=== PATIENT | male | born 1960 | race Caucasian/White ===

== ENCOUNTER 2022-08-29 13:24 | Inpatient (IN) ==
[2022-08-29 15:06] LABS: Basophils # (auto) 0.08 K/uL (0-0.2); Basophils % (auto) 0.6 %; Eosinophils # (auto) 0.43 K/uL (0-0.50); Eosinophils % (auto) 3.3 %; Hematocrit (blood only) 44.4 % (42.0-52.0); Hemoglobin 14.6 g/dl (14.0-18.0); Immature Granulocytes # (auto) 0.05 K/uL (0.01-0.20); Immature Granulocytes % (auto) 0.4 %; Lymphocytes # (auto) 2.54 K/uL (1.2-3.4); Lymphocytes % (auto) 19.3 %; Mean Corpuscular Hemoglobin 30.2 pg (25.0-34.0); Mean Corpuscular Hgb Conc 32.9 g/dL (32.0-36.0); Mean Corpuscular Volume 91.9 fL (80.0-100.0); Mean Platelet Volume 9.2 fL (9.4-12.4); Monocytes # (auto) 0.89 K/uL (0.11-0.59); Monocytes % (auto) 6.8 %; Neutrophils # (auto) 9.16 K/uL (1.40-6.50); Neutrophils % (auto) 69.6 %; Platelet Count 416 K/uL (130-400); RDW Coefficient of Variation 12.7 % (11.5-14.5); Red Blood Count 4.83 M/uL (4.70-6.10); White Blood Count 13.15 K/ul (4.8-10.8)
[2022-08-29 15:21] LABS: Albumin Level 3.9 gm/dl (3.4-5.0); BUN Creatinine Ratio 17.1 (10-20); Bilirubin,Total 0.5 mg/dl (0.2-1.0); Calcium 9.5 mg/dl (8.5-10.1); Creatinine Clr Calc Pharmacy 113.6 ml/min; Est GFR (African American) 119.7 ml/min; Est GFR (Non-African American) 103.3 ml/min; Globulin 3.9 gm/dl (2.5-4.0); Potassium 4.3 mmol/L (3.5-5.1); Total Protein 7.8 gm/dl (6.0-8.3)
--- NOTE | 2022-08-29 16:35 | Emergency Department Note ---
History of Present Illness General Chief complaint: Abdominal Pain Stated complaint: ABODOMINAL PAIN Time Seen by Provider: 08/29/22 16:21 Source: patient Mode of arrival: ambulatory Limitations: no limitations History of Present Illness Maximum Pain Intensity: 3 This patient is a 61-year-old male who presents to the ER for evaluation of 3 weeks of abdominal pain. He initially thought it was a bout of diverticulitis. He called his doctor and started cipro and flagyl. He finished 10 days of this and reports it did not help his symptoms. He was then started on Augmentin, still with no improvement. His outpatient providers ordered a CT scan which was performed this morning and showed an abscess. Patient states his pain has been intermittent, seems to be worse at night. He states he is actually feeling okay at this time and not having much pain. He denies any fever/chills or vomiting. Home Medications Medication Instructions Recorded Confirmed Type amoxicillin 875 mg-potassium 1 tab PO Q12 08/29/22 08/29/22 History clavulanate 125 mg tablet atorvastatin 40 mg tablet 40 mg PO HS 08/29/22 08/29/22 History Allergies Allergy/AdvReac Type Severity Reaction Status Date / Time No Known Allergies Allergy Unverified 01/11/21 14:30 Past Med/Surg History Medical History Diverticulitis Social History Smoking Status: Current every day smoker Cigarettes Per Day: 20; Do You Dip or Chew Tobacco: No; Hx Alcohol Use: No Hx Substance Use: No Preferred Language: Scottish Communication Ability: Effective Cardiopulmonary Technician And Eeg Tech Required: No Beliefs That Will Affect Care: None Current Living Situation: Spouse Feels Safe at Home: Yes Safety Concerns: Feels Safe At This Time Assistive Devices: Denture - Upper and Glasses Review of Systems A total of 10 systems reviewed and were otherwise negative Physical Exam Vital Signs Vital Signs - 24 hr 08/29/22 13:29 08/29/22 16:16 08/29/22 17:55 Temperature 36.9 C Temperature Source Oral Pulse Rate 103 H Pulse Rate [Left Finger] 86 80 Pulse Rhythm [Left Finger] Pulse Strength [Left Finger] Respiratory Rate 18 20 20 Respiratory Effort / Characteristics Non-Labored Spontaneous Respiratory Depth Normal Respiratory Pattern Regular Blood Pressure 154/83 H Blood Pressure [Left Arm] 144/77 H 123/64 Blood Pressure Mean 106 Blood Pressure Mean [Left Arm] 99 83 Blood Pressure Position [Left Arm] Sitting Sitting Pulse Oximetry 96 97 95 Oxygen Delivery Method Room Air Sepsis Recent Fever Within 48 Hours No Sepsis New/Unexplained Change in Mental Status No Sepsis Action Taken by Nursing No Action Required 08/29/22 19:00 08/29/22 21:00 Temperature Temperature Source Pulse Rate Pulse Rate [Left Finger] 79 77 Pulse Rhythm [Left Finger] Regular Regular Pulse Strength [Left Finger] Normal Normal Respiratory Rate 18 18 Respiratory Effort / Characteristics Non-Labored Non-Labored Respiratory Depth Normal Normal Respiratory Pattern Regular Regular Blood Pressure Blood Pressure [Left Arm] 128/60 117/82 Blood Pressure Mean Blood Pressure Mean [Left Arm] 82 93 Blood Pressure Position [Left Arm] Lying Lying Pulse Oximetry 97 97 Oxygen Delivery Method Room Air Room Air Sepsis Recent Fever Within 48 Hours Sepsis New/Unexplained Change in Mental Status Sepsis Action Taken by Nursing VITALS: Vitals are noted on the nurse's note and reviewed by myself. GENERAL: This is a 61-year-old male, in no acute distress, well-developed well- nourished. SKIN: The skin was without rashes. EYES: Pupils equal round and reactive to light and accommodation. MOUTH: Mucous membranes moist. Tonsils are not enlarged. Pharynx without erythema or exudate. NECK: Supple without nuchal rigidity. HEART: Regular rate and rhythm without murmurs gallops or rubs. LUNGS: Clear to auscultation bilaterally without wheezes, rales or rhonchi. No retractions or accessory muscle use. ABDOMEN: Positive bowel sounds x 4. Soft, nontender to palpation. No guarding or rebound tenderness. NEURO: Patient was alert and oriented to person place and time. Course Administered Medications Dextrose/Sodium Chloride (D5w And 1/2nss) 1,000 mls @ 80 mls/hr IV .[id number] [facility] Stop: 08/31/22 12:11 Last Admin: 08/29/22 23:22 Dose: 80 mls/hr Documented By: LRS Piperacillin Sod/Tazobactam (Sod 4.5 gm/ Dextrose) 120 mls @ 30 mls/hr IV Q8H [facility]; Protocol Stop: 09/09/22 00:00 Last Admin: 08/29/22 23:58 Dose: 30 mls/hr Documented By: SHANON Discontinued Medications Piperacillin Sod/Tazobactam Sod (Zosyn) 4.5 gm in 120 mls @ 240 mls/hr IV NOW ONE Stop: 08/29/22 17:06 Last Infusion: 08/29/22 18:47 Dose: 0 mls/hr Documented By: Admin: 08/29/22 17:01 Dose: 240 mls/hr Documented By: RUBY Sodium Chloride (Nss 1000ml) 1,000 mls @ 999 mls/hr IV .Q1H1M ONE Stop: 08/29/22 20:34 Last Infusion: 08/29/22 21:03 Dose: 0 mls/hr Documented By: Admin: 08/29/22 19:52 Dose: 999 mls/hr Documented By: SHANON Medical Decision Making Differential Diagnosis Appendicitis, testicular torsion, infections, diverticulitis, UTI, obstruction, mesenteric ischemia, aortic pathology, inflammatory bowel disease, renal colic, PUD, pancreatitis, biliary pathology, hernia, volvulus, constipation, as well as other pathologies. Home Medications Current Medication List: was personally reviewed by me Laboratory Data Attestation: I reviewed the patient's lab results. 08/29/22 14:23 08/29/22 14:23 Lab Results 08/29/22 08/29/22 08/29/22 Range/Units 14:23 14:23 16:00 WBC 13.15 H (4.8-10.8) K/ul RBC 4.83 (4.70-6.10) M/uL Hgb 14.6 (14.0-18.0) g/dl Hct 44.4 (42.0-52.0) % MCV 91.9 (80.0-100.0) fL MCH 30.2 (25.0-34.0) pg MCHC 32.9 (32.0-36.0) g/dL RDW Std Deviation 43.0 (36.4-46.3) fL RDW Coeff of Jayden 12.7 (11.5-14.5) % Plt Count 416 H (130-400) K/uL MPV 9.2 L (9.4-12.4) fL Immature Gran % (Auto) 0.4 % Neut % (Auto) 69.6 % Lymph % (Auto) 19.3 % [place] % (Auto) 6.8 % Eos % (Auto) 3.3 % Baso % (Auto) 0.6 % Neut # (Auto) 9.16 H (1.40-6.50) K/uL Lymph # (Auto) 2.54 (1.2-3.4) K/uL [place] # (Auto) 0.89 H (0.11-0.59) K/uL Eos # (Auto) 0.43 (0-0.50) K/uL Baso # (Auto) 0.08 (0-0.2) K/uL Immature Gran # (Auto) 0.05 (0.01-0.20) K/uL Sodium 138 (136-145) mmol/L Potassium 4.3 (3.5-5.1) mmol/L Chloride 101 (98-107) mmol/L Carbon Dioxide 31 (21-32) mmol/L Anion Gap 6 (3-11) BUN 12 (6-23) mg/dl Creatinine 0.70 (0.6-1.4) mg/dl Est Cr Clr Drug Dosing 113.6 ml/min Est GFR ( Amer) 119.7 ml/min Est GFR (Non-Af Amer) 103.3 ml/min BUN/Creatinine Ratio 17.1 (10-20) Glucose 97 (70-99(Fasting)) mg/dl Lactate (0.4-2.0) mmol/L Calcium 9.5 (8.5-10.1) mg/dl Total Bilirubin 0.5 (0.2-1.0) mg/dl AST 35 (13-39) U/L ALT 55 H (7-52) U/L Alkaline Phosphatase 63 (34-104) U/L Total Protein 7.8 (6.0-8.3) gm/dl Albumin 3.9 (3.4-5.0) gm/dl Globulin 3.9 (2.5-4.0) gm/dl Albumin/Globulin Ratio 1.0 (0.9-2) Lipase 91 H (11-82) U/L Urine Color Urine Appearance (Clear) Urine pH (4.5-7.5) Ur Specific [place] (1.000-1.030) Urine Protein (Negative) Urine Glucose (UA) (Negative) Urine Ketones (Negative) Urine Blood (Negative) Urine Nitrite (Negative) Urine Bilirubin (Negative) Urine Urobilinogen (Negative) Ur Leukocyte Esterase (Negative) SARS-CoV-2, RNA, NAAT NEGATIVE (NEGATIVE) 08/29/22 08/29/22 Range/Units 16:46 19:52 WBC (4.8-10.8) K/ul RBC (4.70-6.10) M/uL Hgb (14.0-18.0) g/dl Hct (42.0-52.0) % MCV (80.0-100.0) fL MCH (25.0-34.0) pg MCHC (32.0-36.0) g/dL RDW Std Deviation (36.4-46.3) fL RDW Coeff of Jayden (11.5-14.5) % Plt Count (130-400) K/uL MPV (9.4-12.4) fL Immature Gran % (Auto) % Neut % (Auto) % Lymph % (Auto) % [place] % (Auto) % Eos % (Auto) % Baso % (Auto) % Neut # (Auto) (1.40-6.50) K/uL Lymph # (Auto) (1.2-3.4) K/uL [place] # (Auto) (0.11-0.59) K/uL Eos # (Auto) (0-0.50) K/uL Baso # (Auto) (0-0.2) K/uL Immature Gran # (Auto) (0.01-0.20) K/uL Sodium (136-145) mmol/L Potassium (3.5-5.1) mmol/L Chloride (98-107) mmol/L Carbon Dioxide (21-32) mmol/L Anion Gap (3-11) BUN (6-23) mg/dl Creatinine (0.6-1.4) mg/dl Est Cr Clr Drug Dosing ml/min Est GFR ( Amer) ml/min Est GFR (Non-Af Amer) ml/min BUN/Creatinine Ratio (10-20) Glucose (70-99(Fasting)) mg/dl Lactate 0.5 (0.4-2.0) mmol/L Calcium (8.5-10.1) mg/dl Total Bilirubin (0.2-1.0) mg/dl AST (13-39) U/L ALT (7-52) U/L Alkaline Phosphatase (34-104) U/L Total Protein (6.0-8.3) gm/dl Albumin (3.4-5.0) gm/dl Globulin (2.5-4.0) gm/dl Albumin/Globulin Ratio (0.9-2) Lipase (11-82) U/L Urine Color Yellow Urine Appearance Clear (Clear) Urine pH 5.0 (4.5-7.5) Ur Specific [place] 1.042 H (1.000-1.030) Urine Protein Negative (Negative) Urine Glucose (UA) Negative (Negative) Urine Ketones Trace H (Negative) Urine Blood Negative (Negative) Urine Nitrite Negative (Negative) Urine Bilirubin Negative (Negative) Urine Urobilinogen Negative (Negative) Ur Leukocyte Esterase Negative (Negative) SARS-CoV-2, RNA, NAAT (NEGATIVE) Imaging Data Attestation: I personally reviewed and interpreted this imaging study as follows: Radiologist's Impression: CT SCAN OF THE ABDOMEN AND PELVIS WITH IV CONTRAST CLINICAL HISTORY: Generalized abdominal pain. COMPARISON STUDY: No priors. TECHNIQUE: Following the IV administration of 94 cc of Optiray 350, CT scan of the abdomen and pelvis is performed from the lung bases to the proximal femora. Images are reviewed in the axial, sagittal, and coronal planes. IV contrast was administered without complication. Oral contrast was utilized. A dose lowering technique was utilized adhering to the principles of ALARA. CT DOSE: 413.83 mGy.cm FINDINGS: Lung bases: The heart is normal in size and without pericardial effusion. Emphysematous change is noted at the lung bases. No airspace consolidation or pleural effusion is identified. Liver: The contrast-enhanced liver is normal in size, contour, and attenuation. There is no intrahepatic biliary ductal dilatation. The hepatic veins and portal veins are patent. Gallbladder: Unremarkable. Spleen: Normal in size and attenuation. Pancreas: Unremarkable. Adrenal glands: Unremarkable. Kidneys: The contrast enhanced kidneys are normal in size and without hydronephrosis. The kidneys enhance symmetrically. Abdominal vasculature: The abdominal aorta is normal in course and caliber noting moderate atherosclerotic calcification. Bowel: There is mild diverticulosis of the sigmoid colon. There is diffuse wall thickening of the sigmoid colon with surrounding inflammation. A multiloculated abscess is seen in the central pelvis along the right superior aspect of the sigmoid. This measures approximately 5 x 4.5 x 5 cm as seen on axial image #322. Moderate fecal retention is noted throughout the right colon. There is no bowel obstruction. Enteric contrast reaches the cecum. The appendix is well- visualized and normal. Peritoneum: There is no intraperitoneal free air or abdominal ascites. There is a fat-containing umbilical hernia. Lymphadenopathy: There are mildly enlarged retroperitoneal and left iliac chain lymph nodes which measure up to 12 mm in short axis. Pelvic viscera: The prostate gland is enlarged and heterogeneous noting median lobe hypertrophy. The bladder wall is thickened and trabeculated indicating chronic outlet obstruction. There is pericystic infiltration. The diverticular abscess closely approximates the left aspect of the bladder dome which is asymmetrically thick wall. A developing colovesicular fistula is not excluded. There is no gas within the bladder lumen at this time. A small fat-containing inguinal hernia is seen on the right. Skeletal structures: No lytic or blastic lesions are seen. IMPRESSION: 1. There is an approximately 5 cm abscess adjacent to the sigmoid colon. The sigmoid colon is inflamed and there is adjacent diverticular disease. This is likely related to chronic diverticulitis. Posttreatment colonoscopy is recommended to assess the underlying colon and exclude underlying mucosal lesion. 2. No intraperitoneal free air is seen. 3. The abscess closely approximates the bladder dome with adjacent asymmetric bladder wall thickening. A developing colovesicular fistula is not excluded. No gas is seen within the bladder lumen at this time. 4. Mildly enlarged retroperitoneal and iliac chain lymph nodes are likely reactive. 5. Emphysema. 6. Additional findings as above. MDM Narrative This patient is a 61-year-old male who presents to the emergency department for evaluation of abdominal pain. Patient has been treated as an outpatient for diverticulitis with no improvement of symptoms. CT scan was performed as an out patient earlier today and showed a 5 cm abscess adjacent to the sigmoid colon. This is believed to be due to chronic diverticulitis. Patient is overall well- appearing, does not appear to be septic. His labs revealed a leukocytosis of 13,000, no anemia or significant electrolyte abnormalities. Kidney function within normal limits. Urinalysis is not suggestive of infection. Case initially discussed with Dr. Catrer of general surgery who recommended transfer for interventional radiology consultation. I did speak with our radiologist who did not feel that this abscess was amenable to IR drainage given its location and surrounding small bowel. I then again spoke with general surgery who stated the patient need to be transferred for colorectal surgery. I spoke with colorectal surgery at [facility], Dr. Forrester, who accepted the patient in transfer but has no beds available. They believe it will be at least a day to the patient has a bed. Given this, I elected to admit the p atient here to the medical service. Case was discussed with the [facility] who agreed to evaluate the patient for further care. Patient given initial dose of Zosyn and IV fluids. He did not require any pain medication. Impression & Plan Diverticulitis of intestine with abscess Discharge Plan Visit Data Chief Complaint: Abdominal Pain Stated Complaint: ABODOMINAL PAIN ED Provider: Cristo Meléndez ED Midlevel Provider: Estephania Escobar Discharge Problem: Diverticulitis of intestine with abscess Patient Disposition: Admitted As Inpatient Discharge Instructions Interventions: ED Discharge Assessment Last Done: 08/29/22 22:41
[2022-08-29] MEDS ORDERED: PIPERACILLIN/TAZOBACTAM 4.5 GM/120 ML BAG IV ONE (16:37)
[2022-08-29] MEDS ORDERED: SODIUM CHLORIDE 0.9% 1000ML 1,000 ML IV ONE (19:34)
[2022-08-29 20:14] LABS: Appearance Urine Clear (Clear); Bilirubin Urine Negative (Negative); Blood Urine Negative (Negative); Color Urine Yellow; Glucose Urine UA Negative (Negative); Ketones Urine Trace (Negative); Leukocyte Esterase Urine Negative (Negative); Nitrite Urine Negative (Negative); Protein Urine Negative (Negative); Specific Gravity Urine 1.042 (1.000-1.030); Urobilinogen Urine Negative (Negative)
--- NOTE | 2022-08-29 20:34 | History & Physical Report ---
Date of Service August 29, 2022 Assessment & Plan (1) Pericolonic abscess: Plan: Abner is a 61 year old male w/ PmHx diverticulitis, dyslipidemia, tobacco use admitted for pericolonic abscess measuring 5cm adjacent to sigmoid colon. Pericolonic abscess: -WBC 13.5, platelet 416, hgb 14.6. Vitals stable. -CT A&P w/ 5cm pericolonic abscess adjacent to sigmoid colon, approximates bladder dome w/ adjacent bladder wall thickening. -History of diverticulitis with evidence of chronic diverticulitis on CT A&P. -Had 10 day course of Cipro 500mg BID and Flagyl 500mg BID, then started on Augmentin outpatient. -Given 4.5gm Zosyn in the ED. Continue Zosyn 4.5gm q8h. -NPO, IVF D5/.5NSS at 80ml/hr. -ED discussed case with local surgeon and radiology, recommended transfer to tertiary facility. [facility] accepted patient but bed not available for at least 24hrs. -Continue to trend CBC, BMP. Leukocytosis: -WBC 13.5 on admission. -Most likely due to underlying abscess. -Continue to trend. Elevated Lipase: -Lipase 91 on admission, CT A&P showing pancreas unremarkable. -Can repeat in AM. Dyslipidemia: -Hold home statin while NPO. Tobacco use: -1ppd user. -Can add nicotine patch for patient if needed. DVT Prophylaxis: SCDs. F/E/N/GI: NPO. Code status: Conditional code, patient would want CPR and shock performed but no intubation. Dispo: Med/tele, possibly to [facility] if bed available. (2) Dyslipidemia: (3) Tobacco use: History of Present Illness Chief Complaint: Abdominal pain Primary Care Provider: Andres Black Abner is a 61 year old male w/ PmHx diverticulitis, tobacco use, hyperlipidemia coming in to the ED for abdominal pain. He had symptoms of abdominal pain below the belly button x1 night for which he was seen in outpatient clinic 08/09 which he felt was similar to diverticulitis. He was put on Cipro and Flagyl 500mg BID for 10 days, had some improvement with it but still with residual pain when seen at follow up 08/21, he had belly pain first thing in the morning followed by small bowel movement, larger BM after breakfast and pain would get better. He was then placed on Augmentin BID. A CT scan of the A&P was done and a 5cm abscess was found and he was recommended to go to the ED. He states that his BM are regular in consistency but he just has the consistent small bowel movement followed by the larger bowel movements with slight relief in pain. He denies any current abdominal pain and states that he only recently started to get a few chills. He denies any fevers, chest pain, shortness of breath, blood in the stool, dysuria, urinary frequency, headaches. In the ED he was found to have a WBC 13.5, hemoglobin 14.6, platelets 416, electrolytes, kidney function, liver enzymes within normal limits, lipase 91. CT A&P w/ evidence for 5cm abscess adjacent to sigmoid colon, sigmoid colon inflamed and adjacent diverticular disease related to chronic diverticulitis; abscess closely approximates bladder dome w/ adjacent asymmetric bladder wall thickening, mildly enlarged retroperitoneal and iliac chain lymph nodes. Allergies Allergy/AdvReac Type Severity Reaction Status Date / Time No Known Allergies Allergy Unverified 01/11/21 14:30 Home Medications Medication Instructions Recorded Confirmed Type amoxicillin 875 mg-potassium 1 tab PO Q12 08/29/22 08/29/22 History clavulanate 125 mg tablet atorvastatin 40 mg tablet 40 mg PO HS 08/29/22 08/29/22 History Past Med/Surg History Medical History Diverticulitis Social History Smoking Status: Current every day smoker Cigarettes Per Day: 20; Do You Dip or Chew Tobacco: No; Hx Alcohol Use: No Hx Substance Use: No Preferred Language: [place]ese Communication Ability: Effective Wire Bender Required: No Beliefs That Will Affect Care: None Current Living Situation: Spouse Feels Safe at Home: Yes Safety Concerns: Feels Safe At This Time Assistive Devices: None Review of Systems Review of Systems: As per HPI. Physical Exam Constitutional: WD/WN, vitals as above Resting comfortably in bed. Eyes: PERRL, conjunctivae normal, anicteric sclerae Respiratory: normal respiratory effort, lungs clear to auscultation Cardiovascular: RRR, no murmur, no edema Gastrointestinal (Abdomen): normal bowel sounds, soft, nontender, no hepatosplenomegaly Skin: no rashes, warm and dry Psychiatric: A+Ox3, euthymic affect Results & Data Results & Data ([facility]) Vital Signs (Past 12 Hours) Vital Signs Temp Pulse Pulse Resp BP BP Pulse Ox 08/29/22 19:00 79 18 128/60 97 08/29/22 17:55 80 20 123/64 95 08/29/22 16:16 86 20 144/77 H 97 08/29/22 13:29 36.9 C 103 H 18 154/83 H 96 O2 Del Method 08/29/22 19:00 Room Air 08/29/22 17:55 08/29/22 16:16 08/29/22 13:29 Room Air Supervising Physician Co-Signing Physician Notes Attending addendum: I have physically seen this patient, have supervised the medical residents activities, and agree with the H&P unless as otherwise noted. Assessment and Plan: 5 cm abscess/secondary to sigmoid inflammation/chronic diverticulitis/possible developing colovesical fistula- Patient has been accepted in transfer to [facility], however, no bed available, and therefore we admitted to [facility] and transition Patient has been on 10-day course of Cipro and Flagyl p.o. in the outpatient setting Continue Zosyn 4.5 g IV every 8 hours as begun in ED Is status post 1 L normal saline in ED, will continue IV fluids D5 normal saline at 80 mils per hour N.p.o. Zofran 4 mg IV every 6 hours as needed Pantoprazole 40 mg IV daily Follow serial CBC with differential and chemistry profile Patient would likely benefit from IR drainage of abscess at tertiary care facility Remaining orders and notations as noted Resident Activity Tracking Resident Involvement: Resident Care Provided Care Provided: Adult Hospital Medicine
[2022-08-29] MEDS ORDERED: ACETAMINOPHEN 325 MG TAB PO PRN (22:42)
[2022-08-29] MEDS: D5W AND 1/2NSS 1,000 ML IV SCH (23:22)
[2022-08-29] MEDS: PIPERACILLIN/TAZOBACTAM 4.5 GM in DEXTROSE 5% 100 ML IV SCH (23:58)
[2022-08-30 04:57] LABS: Basophils # (auto) 0.05 K/uL (0-0.2); Basophils % (auto) 0.4 %; Eosinophils # (auto) 0.46 K/uL (0-0.50); Hematocrit (blood only) 38.4 % (42.0-52.0); Hemoglobin 12.8 g/dl (14.0-18.0); Immature Granulocytes # (auto) 0.03 K/uL (0.01-0.20); Immature Granulocytes % (auto) 0.3 %; Lymphocytes # (auto) 2.49 K/uL (1.2-3.4); Lymphocytes % (auto) 21.8 %; Mean Corpuscular Hemoglobin 30.4 pg (25.0-34.0); Mean Corpuscular Hgb Conc 33.3 g/dL (32.0-36.0); Mean Corpuscular Volume 91.2 fL (80.0-100.0); Monocytes # (auto) 0.86 K/uL (0.11-0.59); Monocytes % (auto) 7.5 %; Neutrophils # (auto) 7.55 K/uL (1.40-6.50); Platelet Count 354 K/uL (130-400); RDW Coefficient of Variation 12.9 % (11.5-14.5); RDW Standard Deviation 43.4 fL (36.4-46.3); Red Blood Count 4.21 M/uL (4.70-6.10); White Blood Count 11.44 K/ul (4.8-10.8)
[2022-08-30 05:18] LABS: BUN Creatinine Ratio 13.2 (10-20); Calcium 8.9 mg/dl (8.5-10.1); Est GFR (African American) 121.2 ml/min; Est GFR (Non-African American) 104.5 ml/min; Potassium 4.2 mmol/L (3.5-5.1)
[2022-08-30] MEDS: PIPERACILLIN/TAZOBACTAM 4.5 GM in DEXTROSE 5% 100 ML IV SCH ×3 (07:44→23:53)
--- NOTE | 2022-08-30 09:57 | Surgery Consultation ---
Date of Consultation August 30, 2022 Assessment & Plan (1) Diverticulitis of intestine with abscess: pt is a 61 year-old male who presents with LLQ pain, IMP: sigmoid colon diverticulitis with abscess plan, base on pt's H/P, labs and Ct scan finding, pt is candidate for percutaneous drainage abscess by IR, recommend to transfer higher care center for further treatment, pt agreed with the plan, I answered all questions, History of Present Illness Reason for Consultation: diverticulitis with abscess Requesting Physician: Keith Miguel DO Attending Physician: Keanu Geronimo DO History of Present Illness History of Present Illness Chief Complaint: Abdominal pain Primary Care Provider: Andres Black Abner is a 61 year old male w/ PmHx diverticulitis, tobacco use, hyperlipidemia coming in to the ED for abdominal pain. He had symptoms of abdominal pain below the belly button x1 night for which he was seen in outpatient clinic 08/09 which he felt was similar to diverticulitis. He was put on Cipro and Flagyl 500mg BID for 10 days, had some improvement with it but still with residual pain when seen at follow up 08/21, he had belly pain first thing in the morning followed by small bowel movement, larger BM after breakfast and pain would get better. He was then placed on Augmentin BID. A CT scan of the A&P was done and a 5cm abscess was found and he was recommended to go to the ED. He states that his BM are regular in consistency but he just has the consistent small bowel movement followed by the larger bowel movements with slight relief in pain. He denies any current abdominal pain and states that he only recently started to get a few chills. He denies any fevers, chest pain, shortness of breath, blood in the stool, dysuria, urinary frequency, headaches. In the ED he was found to have a WBC 13.5, hemoglobin 14.6, platelets 416, electrolytes, kidney function, liver enzymes within normal limits, lipase 91. CT A&P w/ evidence for 5cm abscess adjacent to sigmoid colon, sigmoid colon inflamed and adjacent diverticular disease related to chronic diverticulitis; abscess closely approximates bladder dome w/ adjacent asymmetric bladder wall thickening, mildly enlarged retroperitoneal and iliac chain lymph nodes. I ( Ervin Carter MD ) got a call for consult diverticulitis with abscess, I reviewed pt's H/P, labs and Ct scan with pt. Allergies Allergy/AdvReac Type Severity Reaction Status Date / Time No Known Allergies Allergy Unverified 01/11/21 14:30 Home Medications Medication Instructions Recorded Confirmed Type amoxicillin 875 mg-potassium 1 tab PO Q12 08/29/22 08/29/22 Hi story clavulanate 125 mg tablet atorvastatin 40 mg tablet 40 mg PO HS 08/29/22 08/29/22 Histo ry Past Med/Surg History Medical History Diverticulitis Social History Smoking Status: Never smoker Preferred Language: Frisian Feels Safe at Home: Yes Review of Systems Review of Systems: As per HPI. Allergies Allergy/AdvReac Type Severity Reaction Status Date / Time No Known Allergies Allergy Unverified 01/11/21 14:30 Home Medications Medication Instructions Recorded Confirmed Type amoxicillin 875 mg-potassium 1 tab PO Q12 08/29/22 08/29/22 History clavulanate 125 mg tablet atorvastatin 40 mg tablet 40 mg PO HS 08/29/22 08/29/22 History Patient History Medical History Diverticulitis Social History Smoking Status: Current every day smoker Cigarettes Per Day: 20; Do You Dip or Chew Tobacco: No; Hx Alcohol Use: No Hx Substance Use: No Preferred Language: Frisian Communication Ability: Effective 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 Beliefs That Will Affect Care: None Current Living Situation: Spouse Feels Safe at Home: Yes Safety Concerns: Feels Safe At This Time Assistive Devices: Denture - Upper and Glasses Review of Systems Constitutional: as per Subjective / HPI no distress Eyes: as per Subjective / HPI Respiratory: as per Subjective / HPI (Tobacco use) Cardiovascular: Additional Comments: dyslipidemia Gastrointestinal: diverticulitis Genitourinary: + as per Subjective / HPI Musculoskeletal: as per Subjective / HPI Neurologic: as per Subjective / HPI Psychiatric: as per Subjective / HPI Endocrine: as per Subjective / HPI Hematologic / Lymphatic: as per Subjective / HPI Physical Exam Constitutional: WD/WN, vitals as above no distress Eyes: PERRL, conjunctivae normal, anicteric sclerae Neck: trachea midline, no thyromegaly Respiratory: normal respiratory effort, lungs clear to auscultation Cardiovascular: RRR, no murmur, no edema Gastrointestinal (Abdomen): soft, no significant tenderness at LLQ, no rebound pain, no distend, BS +, Musculoskeletal: no cyanosis or clubbing, extremities motor strength 5/5 Neurologic: patellar DTR's 2+ bilat, sensation intact Psychiatric: A+Ox3, euthymic affect Results & Data ([facility]) Vital Signs (Past 12 Hours) Vital Signs Pulse Resp BP Pulse Ox Pulse Ox O2 Del Method O2 Del Method 08/30/22 08:51 74 16 111/66 97 Room Air 08/30/22 07:31 85 16 136/64 97 Room Air 08/30/22 05:00 76 18 103/69 97 Room Air 08/29/22 23:00 77 18 105/64 97 Room Air 08/29/22 23:00 98 Room Air Laboratory Results Abnormal lab results 08/29/22 08/29/22 08/29/22 Range/Units 14:23 14:23 19:52 WBC 13.15 H (4.8-10.8) K/ul RBC (4.70-6.10) M/uL Hgb (14.0-18.0) g/dl Hct (42.0-52.0) % Plt Count 416 H (130-400) K/uL MPV 9.2 L (9.4-12.4) fL Neut # (Auto) 9.16 H (1.40-6.50) K/uL Emanuel # (Auto) 0.89 H (0.11-0.59) K/uL Glucose (70-99(Fasting)) mg/dl ALT 55 H (7-52) U/L Lipase 91 H (11-82) U/L Ur Specific [place] 1.042 H (1.000-1.030) Urine Ketones Trace H (Negative) 08/30/22 08/30/22 Range/Units 04:31 04:31 WBC 11.44 H (4.8-10.8) K/ul RBC 4.21 L (4.70-6.10) M/uL Hgb 12.8 L (14.0-18.0) g/dl Hct 38.4 L (42.0-52.0) % Plt Count (130-400) K/uL MPV 9.0 L (9.4-12.4) fL Neut # (Auto) 7.55 H (1.40-6.50) K/uL Emanuel # (Auto) 0.86 H (0.11-0.59) K/uL Glucose 118 H (70-99(Fasting)) mg/dl ALT (7-52) U/L Lipase 5 L (11-82) U/L Ur Specific [place] (1.000-1.030) Urine Ketones (Negative) Diagnostic Findings CT SCAN OF THE ABDOMEN AND PELVIS WITH IV CONTRAST CLINICAL HISTORY: Generalized abdominal pain. COMPARISON STUDY: No priors. TECHNIQUE: Following the IV administration of 94 cc of Optiray 350, CT scan of the abdomen and pelvis is performed from the lung bases to the proximal femora. Images are reviewed in the axial, sagittal, and coronal planes. IV contrast was administered without complication. Oral contrast was utilized. A dose lowering technique was utilized adhering to the principles of ALARA. CT DOSE: 413.83 mGy.cm FINDINGS: Lung bases: The heart is normal in size and without pericardial effusion. Emphysematous change is noted at the lung bases. No airspace consolidation or pleural effusion is identified. Liver: The contrast-enhanced liver is normal in size, contour, and attenuation. There is no intrahepatic biliary ductal dilatation. The hepatic veins and portal veins are patent. Gallbladder: Unremarkable. Spleen: Normal in size and attenuation. Pancreas: Unremarkable. Adrenal glands: Unremarkable. Kidneys: The contrast enhanced kidneys are normal in size and without hydronephrosis. The kidneys enhance symmetrically. Abdominal vasculature: The abdominal aorta is normal in course and caliber noting moderate atherosclerotic calcification. Bowel: There is mild diverticulosis of the sigmoid colon. There is diffuse wall thickening of the sigmoid colon with surrounding inflammation. A multiloculated abscess is seen in the central pelvis along the right superior aspect of the sigmoid. This measures approximately 5 x 4.5 x 5 cm as seen on axial image #322. Moderate fecal retention is noted throughout the right colon. There is no bowel obstruction. Enteric contrast reaches the cecum. The appendix is well- visualized and normal. Peritoneum: There is no intraperitoneal free air or abdominal ascites. There is a fat-containing umbilical hernia. Lymphadenopathy: There are mildly enlarged retroperitoneal and left iliac chain lymph nodes which measure up to 12 mm in short axis. Pelvic viscera: The prostate gland is enlarged and heterogeneous noting median lobe hypertrophy. The bladder wall is thickened and trabeculated indicating chronic outlet obstruction. There is pericystic infiltration. The diverticular abscess closely approximates the left aspect of the bladder dome which is asymmetrically thick wall. A developing colovesicular fistula is not excluded. There is no gas within the bladder lumen at this time. A small fat-containing inguinal hernia is seen on the right. Skeletal structures: No lytic or blastic lesions are seen. IMPRESSION: 1. There is an approximately 5 cm abscess adjacent to the sigmoid colon. The sigmoid colon is inflamed and there is adjacent diverticular disease. This is likely related to chronic diverticulitis. Posttreatment colonoscopy is recommended to assess the underlying colon and exclude underlying mucosal lesion. 2. No intraperitoneal free air is seen. 3. The abscess closely approximates the bladder dome with adjacent asymmetric bladder wall thickening. A developing colovesicular fistula is not excluded. No gas is seen within the bladder lumen at this time. 4. Mildly enlarged retroperitoneal and iliac chain lymph nodes are likely reactive. 5. Emphysema. 6. Additional findings as above.
--- NOTE | 2022-08-30 17:02 | Hospitalist Progress Note ---
Date of Service August 30, 2022 Assessment & Plan (1) Pericolonic abscess: Plan: Abner is a 61 year old male w/ PmHx diverticulitis, dyslipidemia, tobacco use admitted for pericolonic abscess measuring 5cm adjacent to sigmoid colon. Pericolonic abscess: -WBC 13.5, platelet 416, hgb 14.6. Vitals stable. -CT A&P w/ 5cm pericolonic abscess adjacent to sigmoid colon, approximates bladder dome w/ adjacent bladder wall thickening. -History of diverticulitis with evidence of chronic diverticulitis on CT A&P. -Had 10 day course of Cipro 500mg BID and Flagyl 500mg BID, then started on Augmentin outpatient. -Given 4.5gm Zosyn in the ED. Continue Zosyn 4.5gm q8h. -NPO, IVF D5/.5NSS at 80ml/hr. -Consulted general surgery, appreciate recommendations. Dr. Carter: Needs to be transferred to a tertiary care facility for IR intervention. [facility] has accepted him under Dr. Forrester. -Continue to trend CBC, BMP. Leukocytosis: -WBC 13.5 on admission. 11.44 today. -Most likely due to underlying abscess. -Continue to trend. Elevated Lipase: -Lipase 91 on admission, CT A&P showing pancreas unremarkable. -Repeat lipase this morning was 5. Dyslipidemia: -Hold home statin while NPO. Tobacco use: -1ppd user. -Can add nicotine patch for patient if needed. DVT Prophylaxis: SCDs. F/E/N/GI: NPO. Code status: Conditional code, patient would want CPR and shock performed but no intubation. Dispo: Med/tele, transfer to [place] when bed available. (2) Dyslipidemia: (3) Tobacco use: Admission and Anticipated Discharge Date Admission Date: August 29, 2022 Supervising Physician Co-Signing Physician Notes I personally examined the patient and verified all ramirez points of history and exam, discussed case, and agree with decision making with Dr Miguel feeling ok no significant pain. no dark/feculant urine, no dysuria. has some frequency. vitals noted nad heent nc at mmm breathing unlabored no accessory muscles good effort diverticulitis w abscess - concerning proximity to bladder but fortunately no obvious symptoms of fistula. failed outpt treatment almost certainly needs drainage - for transfer for IR. Subjective Patient seen at bedside this morning. No acute events reported overnight. Patient overall comfortable. No new complaints. No nausea or vomiting. Review of Systems Review of Systems: As per HPI. Physical Exam Constitutional: WD/WN, vitals as above Eyes: PERRL, conjunctivae normal, anicteric sclerae Neck: trachea midline, no thyromegaly Respiratory: normal respiratory effort, lungs clear to auscultation Cardiovascular: RRR, no murmur, no edema Gastrointestinal (Abdomen): normal bowel sounds, soft, nontender, no hepatosplenomegaly Musculoskeletal: no cyanosis or clubbing, extremities motor strength 5/5 Skin: no rashes, warm and dry Psychiatric: A+Ox3, euthymic affect Results & Data Results & Data ([facility]) Vital Signs (Past 12 Hours) Vital Signs Pulse Resp BP Pulse Ox O2 Del Method 08/30/22 08:51 74 16 111/66 97 Room Air 08/30/22 07:31 85 16 136/64 97 Room Air 08/30/22 05:00 76 18 103/69 97 Room Air
[2022-08-30] MEDS: D5W AND 1/2NSS 1,000 ML IV SCH (17:21)
--- NOTE | 2022-08-30 19:17 | Billing Data ---
Date of Service August 30, 2022 Coding Level of Care Code 53325 SUB INP/OBS CARE MIN
--- NOTE | 2022-08-31 03:08 | Billing Data ---
Date of Service August 31, 2022 Coding Level of Care Code 11803 INT INP/OBS CARE
[2022-08-31] MEDS: D5W AND 1/2NSS 1,000 ML IV SCH ×2 (03:51→16:01)
--- NOTE | 2022-08-31 07:00 | Discharge Summary ---
Date of Service August 31, 2022 Admission HPI Per Admitting Provider Abner is a 61 year old male w/ PmHx diverticulitis, tobacco use, hyperlipidemia coming in to the ED for abdominal pain. He had symptoms of abdominal pain below the belly button x1 night for which he was seen in outpatient clinic 08/09 which he felt was similar to diverticulitis. He was put on Cipro and Flagyl 500mg BID for 10 days, had some improvement with it but still with residual pain when seen at follow up 08/21, he had belly pain first thing in the morning followed by small bowel movement, larger BM after breakfast and pain would get better. He was then placed on Augmentin BID. A CT scan of the A&P was done and a 5cm abscess was found and he was recommended to go to the ED. He states that his BM are regular in consistency but he just has the consistent small bowel movement followed by the larger bowel movements with slight relief in pain. He denies any current abdominal pain and states that he only recently started to get a few chills. He denies any fevers, chest pain, shortness of breath, blood in the stool, dysuria, urinary frequency, headaches. In the ED he was found to have a WBC 13.5, hemoglobin 14.6, platelets 416, electrolytes, kidney function, liver enzymes within normal limits, lipase 91. CT A&P w/ evidence for 5cm abscess adjacent to sigmoid colon, sigmoid colon inflamed and adjacent diverticular disease related to chronic diverticulitis; abscess closely approximates bladder dome w/ adjacent asymmetric bladder wall thickening, mildly enlarged retroperitoneal and iliac chain lymph nodes. Admission Exam Per Admitting Provider Constitutional: WD/WN, vitals as above Resting comfortably in bed. Eyes: PERRL, conjunctivae normal, anicteric sclerae Respiratory: normal respiratory effort, lungs clear to auscultation Cardiovascular: RRR, no murmur, no edema Gastrointestinal (Abdomen): normal bowel sounds, soft, nontender, no hepatosplenomegaly Skin: no rashes, warm and dry Psychiatric: A+Ox3, euthymic affect Principal Diagnosis Pericolonic Abscess Discharge Exam General: A&Ox3. NAD. Cooperative. HEENT: Atraumatic, normocephalic. Pulm: CTAB A&P. -wheezes, -rales, -rhonchi. Symmetrical chest rise. No increase work of breathing. No respiratory distress. Cardiac: RRR, -mrg. Radial pulses intact and symmetrical. No LE edema. Abdominal: soft, non-tender, non-distended, BS x 4 Skin: warm, dry, no rash Discharge Data Allergies Allergy/AdvReac Type Severity Reaction Status Date / Time No Known Allergies Allergy Unverified 01/11/21 14:30 Consultations 08/29/22 22:33 ED Decision to Admit Stat 08/30/22 09:24 Consult General Surgery Routine Hospital Course (1) Pericolonic abscess: Abner is a 61 year old male w/ PmHx diverticulitis, dyslipidemia, tobacco use admitted for pericolonic abscess measuring 5cm adjacent to sigmoid colon. Pericolonic abscess: -WBC 13.5, platelet 416, hgb 14.6. Vitals stable. -CT A&P w/ 5cm pericolonic abscess adjacent to sigmoid colon, approximates bladder dome w/ adjacent bladder wall thickening. -History of diverticulitis with evidence of chronic diverticulitis on CT A&P. -Had 10 day course of Cipro 500mg BID and Flagyl 500mg BID, then started on Augmentin outpatient. -Given 4.5gm Zosyn in the ED. Continue Zosyn 4.5gm q8h. -NPO, IVF D5/.5NSS at 80ml/hr. -Consulted general surgery, appreciate recommendations. Dr. Carter: Needs to be transferred to a tertiary care facility for IR intervention. [facility] has accepted him under Dr. Forrester. -Continue to trend CBC, BMP. Leukocytosis: -WBC 13.5 on admission. 11.44 today. -Most likely due to underlying abscess. -Continue to trend. Elevated Lipase: -Lipase 91 on admission, CT A&P showing pancreas unremarkable. -Repeat lipase this morning was 5. Dyslipidemia: -Hold home statin while NPO. Tobacco use: -1ppd user. -Can add nicotine patch for patient if needed. DVT Prophylaxis: SCDs. F/E/N/GI: NPO. Code status: Conditional code, patient would want CPR and shock performed but no intubation. (2) Dyslipidemia: (3) Tobacco use: Total Time Total Time Spent Total Time Spent (In Minutes): 30 minutes Discharge Plan Discharge Items Patient Disposition: Transfer Acute Care Hospital Reason For Visit: PERICOLONIC ABSCESS Discharge Diagnosis: Pericolonic abscess Activity: Per Instructions section Non-emergency contact: Primary Care Provider Call non-emergency contact if: your symptoms worsen, your pain is worsening and your temperature is above 101 Follow-up/Referrals: Andres Black [Primary Care Provider] - Diet: Regular Addtl Attending Provider Instructions: Abner is a 61 year old male w/ PmHx diverticulitis, dyslipidemia, tobacco use admitted for pericolonic abscess measuring 5cm adjacent to sigmoid colon. Pericolonic abscess: -WBC 13.5, platelet 416, hgb 14.6. Vitals stable. -CT A&P w/ 5cm pericolonic abscess adjacent to sigmoid colon, approximates bladder dome w/ adjacent bladder wall thickening. -History of diverticulitis with evidence of chronic diverticulitis on CT A&P. -Had 10 day course of Cipro 500mg BID and Flagyl 500mg BID, then started on Augmentin outpatient. -Given 4.5gm Zosyn in the ED. Continue Zosyn 4.5gm q8h. -NPO, IVF D5/.5NSS at 80ml/hr. -Consulted general surgery, appreciate recommendations. Dr. Carter: Needs to be transferred to a tertiary care facility for IR intervention. [facility] has accepted him under Dr. Forrester. -Continue to trend CBC, BMP. Leukocytosis: -WBC 13.5 on admission. 11.44 today. -Most likely due to underlying abscess. -Continue to trend. Elevated Lipase: -Lipase 91 on admission, CT A&P showing pancreas unremarkable. -Repeat lipase this morning was 5. Dyslipidemia: -Hold home statin while NPO. Tobacco use: -1ppd user. -Can add nicotine patch for patient if needed. Pending Studies at Discharge: No Stand-Alone Forms: My [facility] [employer] Skilled Items Patient informed of condition?: Yes DNR: No (CPR and shock but no intubation) Discharge Level of Care: Other Communicable Disease: No Discharge Prognosis: Stable Lines: Peripheral IV Urinary Catheter: No Medications and DC Order Prescriptions: Continued atorvastatin 40 mg tablet 40 mg PO HS amoxicillin-pot clavulanate 875-125 mg tablet 1 tab PO Q12 Rx Instructions: ordered 08/21/22 take for 10 days Discharge Orders: Discharge Order (Routine); Ordered 02/02/23 Ordered By: Juice Hancock Admission Data Admit Date/Time: 08/29/22 21:05 Attending Provider: Keanu Geronimo Admit Provider: Juice Hancock Primary Care Provider: Andres Black Other Providers: Jean Byrnes ; Ervin Carter
[2022-08-31 07:01] LABS: Basophils # (auto) 0.05 K/uL (0-0.2); Basophils % (auto) 0.5 %; Eosinophils % (auto) 1.8 %; Hematocrit (blood only) 37.4 % (42.0-52.0); Hemoglobin 12.4 g/dl (14.0-18.0); Immature Granulocytes # (auto) 0.04 K/uL (0.01-0.20); Immature Granulocytes % (auto) 0.4 %; Lymphocytes # (auto) 2.31 K/uL (1.2-3.4); Lymphocytes % (auto) 20.8 %; Mean Corpuscular Hemoglobin 30.1 pg (25.0-34.0); Mean Corpuscular Hgb Conc 33.2 g/dL (32.0-36.0); Mean Corpuscular Volume 90.8 fL (80.0-100.0); Mean Platelet Volume 9.2 fL (9.4-12.4); Monocytes # (auto) 0.91 K/uL (0.11-0.59); Monocytes % (auto) 8.2 %; Neutrophils # (auto) 7.58 K/uL (1.40-6.50); Neutrophils % (auto) 68.3 %; Platelet Count 376 K/uL (130-400); RDW Coefficient of Variation 12.7 % (11.5-14.5); RDW Standard Deviation 42.3 fL (36.4-46.3); Red Blood Count 4.12 M/uL (4.70-6.10); White Blood Count 11.09 K/ul (4.8-10.8)
[2022-08-31 07:13] LABS: BUN Creatinine Ratio 12.9 (10-20); Calcium 8.7 mg/dl (8.5-10.1); Creatinine Clr Calc Pharmacy 113.6 ml/min; Est GFR (African American) 119.7 ml/min; Est GFR (Non-African American) 103.3 ml/min; Potassium 3.6 mmol/L (3.5-5.1)
[2022-08-31] MEDS: PIPERACILLIN/TAZOBACTAM 4.5 GM in DEXTROSE 5% 100 ML IV SCH ×3 (07:59→22:57)
--- NOTE | 2022-08-31 11:53 | Hospitalist Progress Note ---
Date of Service August 31, 2022 Assessment & Plan (1) Pericolonic abscess: Plan: Abner is a 61 year old male w/ PmHx diverticulitis, dyslipidemia, tobacco use admitted for pericolonic abscess measuring 5cm adjacent to sigmoid colon. Pericolonic abscess: -WBC 13.5, platelet 416, hgb 14.6. Vitals stable. -CT A&P w/ 5cm pericolonic abscess adjacent to sigmoid colon, approximates bladder dome w/ adjacent bladder wall thickening. -History of diverticulitis with evidence of chronic diverticulitis on CT A&P. -Had 10 day course of Cipro 500mg BID and Flagyl 500mg BID, then started on Augmentin outpatient. -Given 4.5gm Zosyn in the ED. Continue Zosyn 4.5gm q8h. -NPO, IVF D5/.5NSS at 80ml/hr. -Consulted general surgery, appreciate recommendations. Dr. Carter: Needs to be transferred to a tertiary care facility for IR intervention. [facility] has accepted him under Dr. Forrester. -Continue to trend CBC, BMP. Leukocytosis: -WBC 13.5 on admission. 11.44 today. -Most likely due to underlying abscess. -Continue to trend. Elevated Lipase: -Lipase 91 on admission, CT A&P showing pancreas unremarkable. -Repeat lipase this morning was 5. Dyslipidemia: -Hold home statin while NPO. Tobacco use: -1ppd user. -Can add nicotine patch for patient if needed. DVT Prophylaxis: SCDs. F/E/N/GI: NPO. Code status: Conditional code, patient would want CPR and shock performed but no intubation. (2) Diverticulitis of intestine with abscess: (3) Dyslipidemia: (4) Tobacco use: Admission and Anticipated Discharge Date Admission Date: August 29, 2022 Supervising Physician Co-Signing Physician Notes I personally examined the patient and verified all ramirez points of history and exam, discussed case, and agree with decision making with Dr Johnston feeling ok no significant pain. still no dark/feculant urine, no dysuria. has some frequency, about the same as yesterday vitals noted nad heent nc at mmm breathing unlabored no accessory muscles good effort diverticulitis w abscess - concerning proximity to bladder but fortunately no obvious symptoms of fistula. failed outpt treatment almost certainly needs drainage - for transfer for IR. Unfortunately there have been issues first with bed availability, then with transportation, compounding the difficulty with bed availability. Currently stable on intravenous antibiotics, but overall high risk situation given intra-abdominal abscess currently being managed with IV antibiotics pending IR drainage Subjective No issues, no pain. Awaiting transfer. Review of Systems Review of Systems: All systems reviewed & are unremarkable except as noted in HPI & below Physical Exam Physical Exam: General: A&Ox3. NAD. Cooperative. HEENT: Atraumatic, normocephalic. Pulm: CTAB A&P. -wheezes, -rales, -rhonchi. Symmetrical chest rise. No increase work of breathing. No respiratory distress. Cardiac: RRR, -mrg. Radial pulses intact and symmetrical. No LE edema. Abdominal: soft, non-tender, non-distended, BS x 4 Skin: warm, dry, no rash Results & Data Results & Data ([facility]) Vital Signs (Past 12 Hours) Vital Signs Temp Pulse Pulse Resp BP Pulse Ox O2 Del Method 08/31/22 07:00 84 08/31/22 03:00 37 C 86 18 116/63 90 Room Air 08/31/22 02:36 78 Resident Activity Tracking Resident Involvement: Resident Care Provided Care Provided: Adult Hospital Medicine
[2022-08-31] MEDS ORDERED: Nursing to Pharmacy Communication SCH (12:30)
[2022-08-31] MEDS ORDERED: LACTATED RINGER'S 1,000 ML IV SCH (12:30)
--- NOTE | 2022-08-31 17:41 | Billing Data ---
Date of Service August 31, 2022 Coding Level of Care Code 39784 SUB INP/OBS CARE
[2022-08-31] MEDS ORDERED: MoRPHine SULFATE 2 MG/ML CARP IV STA (22:39)
[2022-08-31] MEDS ORDERED: ONDANSETRON INJ 2 MG/ML 2 ML VIAL IV PRN (22:39)
[2022-09-01] MEDS: D5W AND 1/2NSS 1,000 ML IV SCH (05:38)
[2022-09-01 06:48] LABS: Basophils # (auto) 0.05 K/uL (0-0.2); Basophils % (auto) 0.4 %; Eosinophils % (auto) 1.7 %; Hemoglobin 12.1 g/dl (14.0-18.0); Immature Granulocytes # (auto) 0.04 K/uL (0.01-0.20); Immature Granulocytes % (auto) 0.3 %; Lymphocytes # (auto) 1.98 K/uL (1.2-3.4); Lymphocytes % (auto) 17.2 %; Mean Corpuscular Hemoglobin 30.4 pg (25.0-34.0); Mean Corpuscular Hgb Conc 33.6 g/dL (32.0-36.0); Mean Corpuscular Volume 90.5 fL (80.0-100.0); Monocytes # (auto) 1.01 K/uL (0.11-0.59); Monocytes % (auto) 8.8 %; Neutrophils # (auto) 8.26 K/uL (1.40-6.50); Neutrophils % (auto) 71.6 %; Platelet Count 360 K/uL (130-400); RDW Coefficient of Variation 12.6 % (11.5-14.5); RDW Standard Deviation 42.2 fL (36.4-46.3); Red Blood Count 3.98 M/uL (4.70-6.10); White Blood Count 11.54 K/ul (4.8-10.8)
[2022-09-01 07:08] LABS: BUN Creatinine Ratio 11.9 (10-20); Calcium 9.2 mg/dl (8.5-10.1); Creatinine Clr Calc Pharmacy 118.7 ml/min; Est GFR (African American) 121.9 ml/min; Est GFR (Non-African American) 105.2 ml/min; Magnesium 2.1 mg/dl (1.7-2.4); Potassium 3.5 mmol/L (3.5-5.1)
--- NOTE | 2022-09-01 08:08 | Hospitalist Progress Note ---
Date of Service September 01, 2022 Assessment & Plan (1) Pericolonic abscess: Plan: Abner is a 61 year old male w/ PmHx diverticulitis, dyslipidemia, tobacco use admitted for pericolonic abscess measuring 5cm adjacent to sigmoid colon. Pericolonic abscess: -WBC 13.5, platelet 416, hgb 14.6. Vitals stable. -CT A&P w/ 5cm pericolonic abscess adjacent to sigmoid colon, approximates bladder dome w/ adjacent bladder wall thickening. -History of diverticulitis with evidence of chronic diverticulitis on CT A&P. -Had 10 day course of Cipro 500mg BID and Flagyl 500mg BID, then started on Augmentin outpatient. -Given 4.5gm Zosyn in the ED. Continue Zosyn 4.5gm q8h. -NPO, IVF D5/.5NSS at 80ml/hr. -Consulted general surgery, appreciate recommendations. Dr. Carter: Needs to be transferred to a tertiary care facility for IR intervention. [facility] has accepted him under Dr. Forrester. -Continue to trend CBC, BMP. Leukocytosis: -WBC 13.5 on admission. 11.44 today. -Most likely due to underlying abscess. -Continue to trend. Elevated Lipase: -Lipase 91 on admission, CT A&P showing pancreas unremarkable. -Repeat lipase this morning was 5. Dyslipidemia: -Hold home statin while NPO. Tobacco use: -1ppd user. -Can add nicotine patch for patient if needed. DVT Prophylaxis: SCDs. F/E/N/GI: NPO. Code status: Conditional code, patient would want CPR and shock performed but no intubation. (2) Diverticulitis of intestine with abscess: (3) Dyslipidemia: (4) Tobacco use: Admission and Anticipated Discharge Date Admission Date: August 29, 2022 Results & Data Results & Data ([facility]) Vital Signs (Past 12 Hours) Vital Signs Temp Pulse Pulse Resp BP Pulse Ox O2 Del Method 09/01/22 07:26 37.1 C 78 18 125/70 91 Room Air 09/01/22 02:53 36.6 C 85 20 125/72 93 Room Air 08/31/22 22:07 88 08/31/22 23:09 36.9 C 85 18 127/73 91 Room Air 08/31/22 21:00 Room Air
--- NOTE | 2022-09-01 08:09 | Discharge Summary ---
Date of Service September 01, 2022 Principal Diagnosis Pericolonic abscess Discharge Exam GENERAL: A&Ox3. NAD. HEENT: EOMI. Moist mucous membranes. CHEST/LUNGS: CTAB A/P. No crackles, wheezes, rales, rhonchi. HEART: RRR. No m/g/r. No carotid bruits. ABDOMEN: NT/ND, soft. BS+ x4 SKIN: Warm and dry. No rashes or lesions. Discharge Data Allergies Allergy/AdvReac Type Severity Reaction Status Date / Time No Known Allergies Allergy Unverified 01/11/21 14:30 Consultations 08/29/22 22:33 ED Decision to Admit Stat 08/30/22 09:24 Consult General Surgery Routine Hospital Course (1) Diverticulitis of intestine with abscess: Abner is a 61 year old male w/ PmHx diverticulitis, dyslipidemia, tobacco use admitted for pericolonic abscess measuring 5cm adjacent to sigmoid colon. Pericolonic abscess: -WBC 13.5, platelet 416, hgb 14.6. Vitals stable. -CT A&P w/ 5cm pericolonic abscess adjacent to sigmoid colon, approximates bladder dome w/ adjacent bladder wall thickening. -History of diverticulitis with evidence of chronic diverticulitis on CT A&P. -Had 10 day course of Cipro 500mg BID and Flagyl 500mg BID, then started on Augmentin outpatient. -Given 4.5gm Zosyn in the ED. Continue Zosyn 4.5gm q8h. -NPO, IVF D5/.5NSS at 80ml/hr. -Consulted general surgery, appreciate recommendations. Dr. Carter: Needs to be transferred to a tertiary care facility for IR intervention. [facility] has accepted him under Dr. Forrester. -Transferred on 09/01 Leukocytosis: -WBC 13.5 on admission. 11.54 today. -Most likely due to underlying abscess. Elevated Lipase: -Lipase 91 on admission, CT A&P showing pancreas unremarkable. -Repeat lipase on 08/30 was 5. Dyslipidemia: -Hold home statin while NPO. Tobacco use: -1ppd user. -Can add nicotine patch for patient if needed DVT Prophylaxis: SCDs. F/E/N/GI: NPO. Code status: Conditional code, patient would want CPR and shock performed but no intubation. Dispo: Transfer to [facility] (2) Tobacco use: (3) Dyslipidemia: (4) Pericolonic abscess: Total Time Total Time Spent Total Time Spent (In Minutes): See attending attestation Discharge Plan Discharge Items Patient Disposition: Transfer Acute Care Hospital Reason For Visit: PERICOLONIC ABSCESS Discharge Diagnosis: Pericolonic abscess Activity: Per Instructions section Non-emergency contact: Primary Care Provider Call non-emergency contact if: your symptoms worsen, your pain is worsening and your temperature is above 101 Follow-up/Referrals: Andres Black [Primary Care Provider] - Diet: Regular Addtl Attending Provider Instructions: Abner is a 61 year old male w/ PmHx diverticulitis, dyslipidemia, tobacco use admitted for pericolonic abscess measuring 5cm adjacent to sigmoid colon. Pericolonic abscess: -WBC 13.5, platelet 416, hgb 14.6. Vitals stable. -CT A&P w/ 5cm pericolonic abscess adjacent to sigmoid colon, approximates bladder dome w/ adjacent bladder wall thickening. -History of diverticulitis with evidence of chronic diverticulitis on CT A&P. -Had 10 day course of Cipro 500mg BID and Flagyl 500mg BID, then started on Augmentin outpatient. -Given 4.5gm Zosyn in the ED. Continue Zosyn 4.5gm q8h. -NPO, IVF D5/.5NSS at 80ml/hr. -Consulted general surgery, appreciate recommendations. Dr. Carter: Needs to be transferred to a tertiary care facility for IR intervention. [facility] has accepted him under Dr. Forrester. -Continue to trend CBC, BMP. Leukocytosis: -WBC 13.5 on admission. 11.44 today. -Most likely due to underlying abscess. -Continue to trend. Elevated Lipase: -Lipase 91 on admission, CT A&P showing pancreas unremarkable. -Repeat lipase this morning was 5. Dyslipidemia: -Hold home statin while NPO. Tobacco use: -1ppd user. -Can add nicotine patch for patient if needed. Pending Studies at Discharge: No Stand-Alone Forms: My [facility] Skilled Items Patient informed of condition?: Yes DNR: No (CPR and shock but no intubation) Discharge Level of Care: Other Communicable Disease: No Discharge Prognosis: Stable Lines: Peripheral IV Urinary Catheter: No Medications and DC Order Prescriptions: Continued atorvastatin 40 mg tablet 40 mg PO HS amoxicillin-pot clavulanate 875-125 mg tablet 1 tab PO Q12 Rx Instructions: ordered 08/21/22 take for 10 days Discharge Orders: Discharge Order (Routine); Ordered 08/31/22 Ordered By: Keith Miguel Admission Data Admit Date/Time: 08/29/22 21:05 Attending Provider: Keanu Geronimo Admit Provider: Juice Hancock Primary Care Provider: Andres Black Other Providers: Jean Byrnes ; Ervin Carter Supervising Physician Co-Signing Physician Notes I personally examined the patient and verified all ramirez points of history and exam, discussed case, and agree with decision making with Dr Reynaga no new complaints, finally set for lisa this AM. vitals noted nad heent nc at mmm breathing unlabored no accessory muscles good effort diverticulitis w abscess - concerning proximity to bladder but fortunately no obvious symptoms of fistula. failed outpt treatment almost certainly needs drainage - for transfer for IR. no overt symptoms of fistula formation, but obviously will need to maintain vigilance Resident Activity Tracking Resident Involvement: Resident Care Provided Care Provided: Adult Hospital Medicine
[2022-09-01] MEDS: PIPERACILLIN/TAZOBACTAM 4.5 GM in DEXTROSE 5% 100 ML IV SCH (08:29)
--- NOTE | 2022-09-01 16:25 | Billing Data ---
Date of Service September 01, 2022 Coding Level of Care Code HOSP INP/OBS DISCH 30 MIN/LESS
== END 2022-09-01 11:49 | disposition short-term general hospital (02) | DRG 392 ==
LOC: ED 13:24 → EDINP 21:05 → SUATTDRO 21:05 → 2N 22:41

== ENCOUNTER 2024-05-23 15:57 | Observation (INO) ==
--- OUTSIDE RECORDS SUMMARY | 2024-05-23 16:03 | External Medical Summary | Continuity of Care Document ---
Author Name Unknown Organization [facility] [address] [place], [place] [id number] Care Team Providers Care Rn Faculty Name Role Phone BlackMalu Primary Care Physician [phone] [id number] Date(s): 04/09/24 - 04/09/24 [facility] [address] [facility] [address] [facility] [address] [place], [place] [phone] Encounter Diagnosis Congenital insufficiency of aortic valve(Final) - Hyperlipidemia, unspecified(Final) - Tobacco use(Final) - Discharge Disposition: Home or Self Care Attending Physician: DO Gomez Jason D Referring Physician: DO Gomez Jason D Allergies, Adverse Reactions, Alerts Substance Criticality Severity Reaction Reaction Severity Status Bee stings Unable to assess criticality Moderate Swelling Active Immunizations Given and Recorded Vaccine Date Status Refusal Reason zoster vaccine, inactivated 1 11/15/23 Given zoster vaccine, inactivated 2 09/16/23 Given SARS-CoV-2 (COVID-19) mRNA-1273 vaccine 3 07/17/21 Recorded SARS-CoV-2 (COVID-19) mRNA-1273 vaccine 4 10/04/20 Recorded SARS-CoV-2 (COVID-19) mRNA-1273 vaccine 5 09/06/20 Recorded tetanus/diphtheria/pertuss, acel (Tdap) 11/04/15 G iven 1Result Comment: Adjuvant Suspension Component lot# [id number] exp 08/22/25 2Result Comment: [id number] 07/03/25 3Result Comment: 2022-05-04: Historical information-source unspecified 4Result Comment: 2022-05-04: Historical information-source unspecified 5Result Comment: 2022-05-04: Historical information-source unspecified Medications Crestor 40 mg oral tablet Start: 10/07/23 10:05:00 AM EDT, 1 tab, PO, qhs, Disp# 90 tab, Refills: 3, Pharmacy: [id number] Start Date: 10/07/23 Status: Ordered sildenafil 20 mg oral tablet Start: 04/15/23 11:46:00 AM EDT, See Instructions, Disp# 30 tab, Refills: 3, TAKE 1 TO 3 TABLETS BY MOUTH 30-60 MIN PRIOR TO INTERCOURSE DIRECTED FOR ERECTILE DYSFUNCTION, Pharmacy: [id number] Start Date: 04/15/23 Status: Ordered traZODone 50 mg oral tablet Start: 03/26/24 9:16:00 AM EDT, 2 tab, PO, qhs, Disp# 60 tab, Refills: 5, Pharmacy: [id number] Start Date: 03/26/24 Stop Date: 09/22/24 Status: Ordered Zetia 10 mg oral tablet Start: 04/10/24 11:44:00 AM EDT, 1 tab, PO, Daily, Disp# 90 tab, Refills: 3, Pharmacy: [id number] Start Date: 04/10/24 Status: Ordered Problem List Condition Confirmation Course Effective Dates Status H ealth Status Informant Bicuspid aortic valve Confirmed Active Carotid bruit Confirmed Active Diverticulitis Confirmed Active Hyperlipidemia Confirmed Active IT band syndrome Confirmed Active Right knee pain Confirmed Active Positional sleep apnea Confirmed Active Tobacco user Confirmed Active Warts Confirmed Active Weight disorder Confirmed Active Procedures Procedure Date Related Diagnosis Body Site Status Colonoscopy 1 12/04/[address] of abdomen and pelvis 2 08/29/22 Completed Colonoscopy 3 07/13/13 Completed 1Impression: Preparation of the colon was fair Patent end-to-end colo-colonic anastamosis, characterized by healthya appearing mucosa. No specimens collected. Repeat colonoscopy in 5 years. 21. There is an approximately 5 cm abscess adjacent to the sigmoid colon. The sigmoid colon is inflamed and there is adjacent diverticular disease. This is likely related to chronic diverticulitis. Posttreatment colonoscopy is recommended to assess the underlying colon and exclude underlying mucosallesion. 2. No intraperitoneal free air is seen 3. The abscess closely approximates the bladder dome with adjacent asymmetric bladder wall thickening. A developing colovesicular fisutla is not excluded. No gas is seen within the bladder lumen at this time. 4. Mildly enlarged retroperitoneal and iliac chain lymph nodes are likely reactive. 5. Emphysema 3MIld sigmoid diverticulosis, few with perideverticular hyperemia. 3 small polyps removed from rectym by hot snare. Moderately enlarged internal hemorrhoids. Pathology results: A) Rectum, polyps: -Fragments of benign colonic mucosa with cautery artifact. Suggestive of hyperplastic polyps. Repeat in 5 years. Results Laboratory List Name Date Comprehensive Metabolic Panel (COMP META B PANEL) 04/09/24 Lipid Profile (LIPOPROTEINS) 04/09/24 Most recent to oldest [Reference Range]: 1 eGFR CKD-EPI [>60 mL/min/1.73 m2] >90 mL /min/1.73 m2 1 (04/09/24 7:09 AM) Non-HDL 130 mg/dL 2 (04/09/24 7:09 AM) Estimated CrCl 107.38 mL/min (04/09/24 10:43 AM) Anion Gap [5-14 mmol/L] 6 mmol/L (04/09/24 7:09 AM) Alb [3.5-5.0 g/dL] 4.2 g/dL (04/09/24 7:09 AM) Alk Phos [38-126 unit/L] 57 unit/L (04/09/24 7:09 AM) ALT [<50 unit/L] 17 unit/L (04/09/24 7:09 AM) AST [15-46 unit/L] 31 unit/L (04/09/24 7:09 AM) BUN [7-20 mg/dL] 14 mg/dL (04/09/24 7:09 AM) Ca [8.4-10.2 mg/dL] 9.7 mg/dL (04/09/24 7:09 AM) Chol/HDL 4 (04/09/24 7:09 AM) Chol [125-200 mg/dL] 174 mg/dL (04/09/24 7:09 AM) Cl- [96-107 mmol/L] 104 mmol/L (04/09/24 7:09 AM) HCO3 [22-30 mmol/L] 30 mmol/L (04/09/24 7:09 AM) Cret [0.70-1.30 mg/dL] 0.72 mg/dL (04/09/24 7:09 AM) Glu [74-106 mg/dL] 121 mg/dL *HI* (04/09/24 7:09 AM) HDL [>35 mg/dL] 44 mg/dL (04/09/24 7:09 AM) K [3.5-5.1 mmol/L] 4.3 mmol/L (04/09/24 7:09 AM) LDL Chol, Calculated [50-130 mg/dL] 96 m g/dL (04/09/24 7:09 AM) Na [137-145 mmol/L] 140 mmol/L (04/09/24 7:09 AM) T Bili [0.2-1.3 mg/dL] 0.9 mg/dL (04/09/24 7:09 AM) Prot [6.3-8.2 g/dL] 7.8 g/dL (04/09/24 7:09 AM) TG [<200 mg/dL] 168 mg/dL (04/09/24 7:09 AM) 1Result Comment: Testing Performed By: Dept of Pathology [facility] [address] [place] [address] 2Result Comment: Testing Performed By: Dept of Pathology [facility] [address] [place] [address] Social History Social History Type Response Smoking Status Current every day he [place] smoker Sex Male Sex Representation Male (finding) Patient Care team information Care Team Personnel Name: Zonia Hodge Erika Joy Position: Pharmacist Member Role: Pharmacy - Lifetime Name: CLEM Liu, Tari Position: Audio Technician Member Role: Audio Technician Name: CLEM Stratton, Nataliia Position: Audio Technician Member Role: Audio Technician Address: [facility] [address] [place], [place] [address] Name: MD Wayne, Malu Canales Position: Physician Member Role: Primary Care Provider Address: [address] [place] [address] [place] Care Team Related Persons Name: ROM FELICIANO Name: ROM FELICIANO
[2024-05-23] MEDS: ONDANSETRON INJ 2 MG/ML 2 ML VIAL IV STA (16:49)
[2024-05-23] MEDS: fentaNYL citrate PF 100 MCG/2 ML VIAL IV PRN (16:49)
[2024-05-23 17:07] LABS: Basophils # (auto) 0.08 K/uL (0.00-0.20); Basophils % (auto) 0.9 %; Eosinophils # (auto) 0.31 K/uL (0.00-0.50); Eosinophils % (auto) 3.6 %; Hematocrit (blood only) 46.6 % (42.0-52.0); Immature Granulocytes # (auto) 0.01 K/uL (0.01-0.20); Immature Granulocytes % (auto) 0.1 %; Lymphocytes # (auto) 3.72 K/uL (1.20-3.40); Lymphocytes % (auto) 43.2 %; Mean Corpuscular Hemoglobin 31.3 pg (25.0-34.0); Mean Corpuscular Hgb Conc 34.3 g/dL (32.0-36.0); Mean Corpuscular Volume 91.2 fL (80.0-100.0); Mean Platelet Volume 9.7 fL (9.4-12.4); Monocytes # (auto) 0.44 K/uL (0.11-0.59); Monocytes % (auto) 5.1 %; Neutrophils # (auto) 4.06 K/uL (1.40-6.50); Neutrophils % (auto) 47.1 %; Platelet Count 231 K/uL (130-400); RDW Coefficient of Variation 13.1 % (11.5-14.5); RDW Standard Deviation 44.1 fL (36.4-46.3); Red Blood Count 5.11 M/uL (4.70-6.10); White Blood Count 8.62 K/ul (4.8-10.8)
[2024-05-23] MEDS: MoRPHine SULFATE 4 MG/ML 1 ML CARP\\VIAL IV STA ×2 (17:12→18:37)
[2024-05-23 17:20] LABS: Albumin Globulin Ratio 1.4 (0.9-2); Albumin Level 4.4 gm/dl (3.4-5.0); BUN Creatinine Ratio 17.1 (10-20); Bilirubin,Total 0.5 mg/dl (0.2-1.0); Calcium 9.5 mg/dl (8.6-10.3); Creatinine Clr Calc Pharmacy 102.1 ml/min; Globulin 3.1 gm/dl (2.5-4.0); Magnesium 1.9 mg/dl (1.7-2.4); Potassium 3.8 mmol/L (3.5-5.1); Total Protein 7.5 gm/dl (6.0-8.3)
[2024-05-23 17:30] LABS: INR 0.9 (0.9-1.1); Prothrombin Time 10.3 Seconds (9.0-12.0)
[2024-05-23] MEDS: OPTIRAY 320 100ml IV ONE (17:42)
--- NOTE | 2024-05-23 17:47 | Emergency Department Note ---
Impression & Plan Abdominal pain, Nausea, Cholecystitis ED Provider Note ED Provider Note NAME: GWYN FELICIANO AGE:63 SEX: Male : 1960 ARRIVES VIA: Private vehicle INFORMANT: Patient ED PROVIDER(s): Krystal Romano DO CHIEF COMPLAINT: Abdominal pain HPI: This is a 63-year-old male presents emergency department due to concern for abdominal pain. He states symptoms began while traveling home today as they were recently vacationing in [place] and just flew back today. He states he had 2 similar events while on vacation in [place]. He states he began having pain and was able to lay down and rest and symptoms seem to improve, however then he tried to eat and pain recurred and felt worse. He states every episode the pain has been in the same spot in the upper abdomen towards the right. He denies radiation into the back or flank. He states he has been nauseated but has not vomited. He denies fevers, chills, change in urine, or change in stools. Patient has had prior abdominal surgery following complicated diverticulitis with abscess that required a colon resection. No history of PUD, no recent heartburn symptoms. No recent change in medications or diet. No known sick contacts. PAST MEDICAL HISTORY:See Below PAST SURGICAL HISTORY:See Below FAMILY HISTORY:See Below SOCIAL HISTORY:See Below HOME MEDICATIONS:See Below ALLERGIES:See Below VITALS:See Below PHYSICAL EXAMINATION: GENERAL: alert, uncomfortable appearing, well nourished, mild distress, non- toxic EYE EXAM: normal conjunctiva, PERRL and EOM's grossly intact OROPHARYNX: no exudate, no erythema, lips, buccal mucosa, and tongue normal and mucous membranes are moist NECK: supple, no nuchal rigidity, no adenopathy, non-tender LUNGS: Clear to auscultation. Normal chest wall mechanics, no w/r/r HEART: no murmurs, S1 normal and S2 normal ABDOMEN: abdomen soft, pain with palpation in the right upper quadrant normo- active bowel sounds, no masses, no rebound or guarding. Well-healed surgical scars noted to the abdomen. BACK: Back is symmetrical on inspection and there is no deformity, no midline tenderness, no CVA tenderness. SKIN: no rashes, petechiae, orbruising UPPER EXTREMITIES: upper extremities are grossly normal. FROM, nml pulses b/l. LOWER EXTREMITIES: No pitting edema. FROM, nml pulses b/l. NEURO EXAM: Normal sensorium, cranial nerves II-XII grossly intact, normal speech, no facial droop,nogross weakness of arms, no gross weakness of legs. Gross sensation intact. No ataxia. Vital Signs: reviewed and remarkable Differential Diagnosis: PUD, GI bleed, cholecystitis, pancreatitis, bowel obstruction, colitis, mesenteric ischemia, anastomotic leak, as well as others were considered MEDICAL DECISION MAKING: This is a 63-year-old male presents emergency department due to concern for right upper quadrant abdominal pain. Pain worse than several prior recent episodes. He was afebrile and vital signs stable. Labs drawn and sent, IV established, EKG performed at bedside interpreted me and patient monitored on telemetry. Due to prior bowel resection and surgical history, patient sent for CT of the abdomen and pelvis initially. CT revealed findings concerning for cholecystitis. I did send a [facility] text to the on-call general surgeon who advised a follow-up ultrasound. This was read as acute cholecystitis additionally. The general surgery PA came and saw the patient at bedside and will plan on admitting him for operative intervention. Patient given several doses of IV morphine and IV fentanyl to help with pain. He was given IV Zofran additionally for nausea. Consultation(s): 1844: Discussed with Dr. Livingston via [facility] text regarding CT findings. Recommends additional ultrasound. 1944: Discussed with Robin Montes PA-C with general surgery who came to the emergency department and will see the patient at bedside regarding acute cholecystitis. ER Treatment Provided: See below Diagnostics Interpreted By Me: -ECG: Normal sinus at 60, normal axis, normal intervals, no acute ST/T wave changes -Cardiac Monitoring: An order was placed for continuous cardiac monitoring. The monitor shows a rate of 64 with normal sinus rhythm. -Laboratory studies: As stated above and show below. -Imaging studies: ct a/p: no sbo, no perf Triage Nursing Note Reviewed Prior/Outside Records Reviewed Past Med/Surg History Problem List (Updated 05/23/24 @ 22:49 by Krystal Romano DO) Cholecystitis (Acute) Nausea (Acute) Abdominal pain (Acute) Mild sleep apnea Sleep disturbances Insomnia Snoring Diverticulitis of intestine with abscess (Acute) Tobacco use Dyslipidemia Pericolonic abscess Medical History Diverticulitis Social History Smoking Status: Current every day smoker Tobacco Type: Cigarettes Cigarettes Per Day: 20; Do You Dip or Chew Tobacco: No; Hx Alcohol Use: No Hx Substance Use: No Preferred Language: Kittitian Communication Ability: Effective Director Of Emergency Nursing Required: No Beliefs That Will Affect Care: None Current Living Situation: Spouse Feels Safe at Home: Yes Safety Concerns: Feels Safe At This Time Assistive Devices: None Allergies Allergies Allergy/AdvReac Type Severity Reaction Status Date / Time No Known Allergies Allergy Unverified 09/12/23 13:31 Home Meds Home Medications Medication Instructions Recorded Confirmed trazodone 50 mg tablet 100 mg PO HS 12/18/23 05/23/24 ezetimibe 10 mg tablet 10 mg PO QPM 05/23/24 05/23/24 Results & Data (ED) Vital Signs Vital Signs - 24 hr 05/23/24 16:02 05/23/24 17:45 Temperature 36.3 C L Temperature Source Temporal Artery Scan Pulse Rate 70 Pulse Rate [Apical] 63 Pulse Rhythm Regular Pulse Strength Normal Respiratory Rate 20 20 Respiratory Effort / Characteristics Non-Labored Spontaneous Respiratory Depth Normal Respiratory Pattern Regular Blood Pressure 161/78 H Blood Pressure [Right Arm] 160/84 H Blood Pressure Mean 105 Blood Pressure Mean [Right Arm] 109 Blood Pressure Position Sitting Pulse Oximetry 94 92 Oxygen Delivery Method Room Air Room Air Sepsis Recent Fever Within 48 Hours No Sepsis New/Unexplained Change in Mental Status No Sepsis Action Taken by Nursing No Action Required Laboratory Data 05/23/24 16:11 05/23/24 16:11 Lab Results 05/23/24 Range/Units 16:11 WBC 8.62 (4.8-10.8) K/ul RBC 5.11 (4.70-6.10) M/uL Hgb 16.0 (14.0-18.0) g/dl Hct 46.6 (42.0-52.0) % MCV 91.2 (80.0-100.0) fL MCH 31.3 (25.0-34.0) pg MCHC 34.3 (32.0-36.0) g/dL RDW Std Deviation 44.1 (36.4-46.3) fL RDW Coeff of Jayden 13.1 (11.5-14.5) % Plt Count 231 (130-400) K/uL MPV 9.7 (9.4-12.4) fL Immature Gran % (Auto) 0.1 % Neut % (Auto) 47.1 % Lymph % (Auto) 43.2 % Canyon % (Auto) 5.1 % Eos % (Auto) 3.6 % Baso % (Auto) 0.9 % Neut # (Auto) 4.06 (1.40-6.50) K/uL Lymph # (Auto) 3.72 H (1.20-3.40) K/uL Canyon # (Auto) 0.44 (0.11-0.59) K/uL Eos # (Auto) 0.31 (0.00-0.50) K/uL Baso # (Auto) 0.08 (0.00-0.20) K/uL Immature Gran # (Auto) 0.01 (0.01-0.20) K/uL PT 10.3 (9.0-12.0) Seconds INR 0.9 (0.9-1.1) Sodium 139 (136-145) mmol/L Potassium 3.8 (3.5-5.1) mmol/L Chloride 100 (98-107) mmol/L Carbon Dioxide 32 (21-32) mmol/L Anion Gap 7 (3-11) BUN 13 (6-23) mg/dl Creatinine 0.76 (0.6-1.4) mg/dl Est Cr Clr Drug Dosing 102.1 ml/min eGFR 102.26 BUN/Creatinine Ratio 17.1 (10-20) Glucose 126 H (70-99(Fasting)) mg/dl Calcium 9.5 (8.6-10.3) mg/dl Magnesium 1.9 (1.7-2.4) mg/dl Total Bilirubin 0.5 (0.2-1.0) mg/dl AST 14 (13-39) U/L ALT 11 (7-52) U/L Alkaline Phosphatase 51 (34-104) U/L Total Protein 7.5 (6.0-8.3) gm/dl Albumin 4.4 (3.4-5.0) gm/dl Globulin 3.1 (2.5-4.0) gm/dl Albumin/Globulin Ratio 1.4 (0.9-2) Lipase 24 (11-82) U/L Administered Medications Discontinued Medications Fentanyl Citrate (Fentanyl Citrate Pf 100 Mcg/2 Ml Vial) 50 mcg IV Q15M PRN PRN Reason: Pain Stop: 06/06/24 16:41 Last Admin: 05/23/24 16:49 Dose: 50 mcg Documented By: SALLIEB Piperacillin Sod/Tazobactam Sod (Zosyn) 4.5 gm in 100 mls @ 200 mls/hr IV NOW ONE; Protocol Stop: 05/23/24 20:35 Last Infusion: 05/23/24 21:42 Dose: Infused Documented By: Admin: 05/23/24 20:35 Dose: 200 mls/hr Documented By: WILDER Ioversol (Optiray 320 100ml) 94 ml IV ONCE ONE Stop: 05/23/24 17:42 Last Admin: 05/23/24 17:42 Dose: 94 ml Documented By: MONSTER Morphine Sulfate (Morphine Sulfate 4 Mg/Ml 1 Ml Carp\Vial) 4 mg IV NOW STA Stop: 05/23/24 17:03 Last Admin: 05/23/24 17:12 Dose: 4 mg Documented By: FARHEEN Morphine Sulfate (Morphine Sulfate 4 Mg/Ml 1 Ml Carp\Vial) 4 mg IV NOW STA Stop: 05/23/24 18:35 Last Admin: 05/23/24 18:37 Dose: 4 mg Documented By: FARHEEN Ondansetron HCl (Ondansetron Inj 2 Mg/Ml 2 Ml Vial) 4 mg IV NOW STA Stop: 05/23/24 16:43 Last Admin: 05/23/24 16:49 Dose: 4 mg Documented By: FARHEEN Imaging Data Radiologist's Impression: Abdomen/Pelvis CT 05/23/24 17:[address] WITH IV CONTRAST CT DOSE: 837.33 mGy.cm HISTORY: Acute upper abdominal pain upper abd pain, prior bowel resection TECHNIQUE: Multiaxial CT images of the abdomen and pelvis were performed following the IV administration of 94 cc of Optiray, A dose lowering technique was utilized adhering to the principles of ALARA. COMPARISON STUDY: 08/29/2022 FINDINGS: Lung bases are generally clear. Coronary artery calcifications. Unremarkable spleen, pancreas and right adrenal gland. Unchanged nodular left adrenal gland thickening. Unremarkable liver. Patency of the hepatic and portal veins. Cholelithiasis with borderline gallbladder wall thickening and trace pericholecystic fluid. 6 mm stone within the proximal cystic duct. No choledocholithiasis. Unremarkable kidneys. No hydronephrosis. Mild prostatomegaly. Bladder wall thickening with partial distention. Atherosclerosis of the aorta without aneurysm. Prior sigmoid colon resection. Small bowel anastomosis in the mid abdomen. Normal appendix. No acute fracture. IMPRESSION: 1. Cholelithiasis with subcentimeter stone within the cystic duct and subtle CT findings suggestive of acute cholecystitis. Surgical consultation is advised. 2. No bowel obstruction or bowel wall thickening. 3. Normal appendix. ACT 112: Negative or not required by law. The above report was generated using voice recognition software. It may contain grammatical, syntax or spelling errors. Electronically signed by: Tee Burns M.D. 05/23/2024 6:22 PM Gallbladder Ultrasound 05/23/24 18:49 ABDOMINAL ULTRASOUND, RIGHT UPPER QUADRANT HISTORY: Acute right upper quadrant abdominal pain RUQ pain, ?acute michael on CT. COMPARISON: CT same day FINDINGS: Pancreas: The pancreas demonstrates a normal echotexture. Liver: Unremarkable. Gallbladder: Cholelithiasis with gallbladder wall thickening measuring 3.3 mm. Nonmobile stones in the gallbladder neck. Gallbladder is distended. Study is limited secondary to patient body habitus. No definite pericholecystic fluid. Positive sonographic Rangel's sign. CBD: 5 mm. Right kidney: No hydronephrosis. IMPRESSION: 1. Cholelithiasis with findings suggestive of acute cholecystitis. 2. No biliary ductal dilation. ACT 112: Negative or not required by law. Electronically signed by: Tee Burns M.D. 05/23/2024 7:30 PM Discharge Plan Visit Data Chief Complaint: Abdominal Pain Stated Complaint: SEVERE ABD PAIN ED Provider: Krystal Romano Discharge Problem: Abdominal pain, Nausea, Cholecystitis Patient Disposition: Admitted As Inpatient Discharge Instructions Interventions: ED Discharge Assessment Last Done: 05/23/24 21:40
--- NOTE | 2024-05-23 18:24 | CT Scan Report ---
ABDOMEN AND PELVIS CT WITH IV CONTRAST CT DOSE: 837.33 mGy.cm HISTORY: Acute upper abdominal pain upper abd pain, prior bowel resection TECHNIQUE: Multiaxial CT images of the abdomen and pelvis were performed following the IV administrat ion of 94 cc of Optiray, A dose lowering technique was utilized adhering to the principles of ALARA. COMPARISON STUDY: 08/29/2022 FINDINGS: Lung bases are generally clear. Coronary artery calcifications. Unremarkable spleen, pancre as and right adrenal gland. Unchanged nodular left adrenal gland thickening. Unremarkable liver. Painter ncy of the hepatic and portal veins. Cholelithiasis with borderline gallbladder wall thickening and t race pericholecystic fluid. 6 mm stone within the proximal cystic duct. No choledocholithiasis. Unremarkable kidneys. No hydronephrosis. Mild prostatomegaly. Bladder wall thickening with partial di stention. Atherosclerosis of the aorta without aneurysm. Prior sigmoid colon resection. Small bowel a nastomosis in the mid abdomen. Normal appendix. No acute fracture. IMPRESSION: 1. Cholelithiasis with subcentimeter stone within the cystic duct and subtle CT findings suggestive o f acute cholecystitis. Surgical consultation is advised. 2. No bowel obstruction or bowel wall thickening. 3. Normal appendix. ACT 112: Negative or not required by law. The above report was generated using voice recognition software. It may contain grammatical, syntax o r spelling errors. Electronically signed by: Tee Burns M.D. 05/23/2024 6:22 PM
--- NOTE | 2024-05-23 19:32 | Ultrasound Report ---
ABDOMINAL ULTRASOUND, RIGHT UPPER QUADRANT HISTORY: Acute right upper quadrant abdominal pain RUQ pain, ?acute michael on CT. COMPARISON: CT same day FINDINGS: Pancreas: The pancreas demonstrates a normal echotexture. Liver: Unremarkable. Gallbladder: Cholelithiasis with gallbladder wall thickening measuring 3.3 mm. Nonmobile stones in th e gallbladder neck. Gallbladder is distended. Study is limited secondary to patient body habitus. No definite pericholecystic fluid. Positive sonographic Rangel's sign. CBD: 5 mm. Right kidney: No hydronephrosis. IMPRESSION: 1. Cholelithiasis with findings suggestive of acute cholecystitis. 2. No biliary ductal dilation. ACT 112: Negative or not required by law. Electronically signed by: Tee Burns M.D. 05/23/2024 7:30 PM
[2024-05-23] MEDS ORDERED: ACETAMINOPHEN 1,000 MG/100 ML VIAL IV PRN (20:06)
[2024-05-23] MEDS ORDERED: MoRPHine SULFATE 4 MG/ML 1 ML CARP\\VIAL IV PRN (20:06)
[2024-05-23] MEDS ORDERED: ONDANSETRON INJ 2 MG/ML 2 ML VIAL IV PRN (20:06)
--- NOTE | 2024-05-23 20:06 | History & Physical Report ---
Date of Service May 23, 2024 Assessment & Plan (1) Cholecystitis: Plan: Due to the patient's clinical presentation and findings on imaging he will be admitted to the surgical service proceeding as follows: Analgesics to be provided Antiemetics to be provided We will initiate antibiotics with form of Zosyn I feel be acceptable for patient to have sips of clear liquids up until midnight tonight at which time he will be made n.p.o. Once patient is made n.p.o. we will hydrate him with IV fluids We will repeat labs in the morning to ensure there is no elevation of his LFTs Will tentatively plan to have the patient undergo cholecystectomy with Dr. Cezar Livingston of [facility] physician group general surgery on 05/24/2024 Additional recommendations with forthcoming based on operative findings and his clinical course as it unfolds thereafter Will use SCDs for DVT prevention, no chemical means due to planned surgery He will be a level 1 full code History of Present Illness Chief Complaint: Abdominal pain Primary Care Provider: Andres Black MD This is a 63-year-old male who presented to the emergency department [facility] secondary abdominal pain. Patient says over the past 5 days he has been having right upper quadrant abdominal pain. Patient is unsure if it was related to meals as he has not been paying much attention to that aspect of his life. He has had associated nausea without vomiting. He denies any fevers, shakes, or chills. He does not report any other mitigating factors to his pain. He notes that he has been having the pain and it on and off fashion and today became markedly worse prompting his visit to the emergency department. Patient does note that he has a history of prior abdominal surgeryhe has had a history of diverticulitis with perforation and intra- abdominal abscess requiring a sigmoid colon resection end ileostomy at [facility] in August 2022. He notes that his ileostomy was reversed in November 2022 and he has not had any additional abdominal surgeries. Patient does report that he is a lifetime smoker smoking 1 pack cigarettes per day for approximately 50 years. He denies any known history of coronary artery disease. He notes he leads an active lifestyle and can easily walk a flat surface at a mile without chest pain or shortness of breath. He denies any chest pain or shortness of breath with his activities of daily living. Since arrival to the emergency department this man has had labs and imaging which I independent reviewed. A CT scan abdomen pelvis showed the patient had gallstones with a gallstone in the cystic duct and findings concerning for acute cholecystitis. There was borderline gallbladder wall thickening and trace pericholecystic fluid. There is no choledocholithiasis noted on this study. The gallbladder ultrasound confirmed cholelithiasis and findings concerning for cholecystitishe was noted to have wall thickening measuring 3.3 mm and a nonmobile stone in the gallbladder neck. The gallbladder was distended on this study. Labs included CBC with white blood cell count, hemoglobin, hematocrit, platelet count were normal. Coagulation studies were noted to be normal. Chemistry profile showed sodium and potassium as well as BUN and creatinine were normal. There is no elevation of patient's LFTs or lipase. An EKG showed sinus rhythm without any changes indicative of acute ischemia. At the time of my interview he was resting comfortably in bed and he was in no distress. Concerning past medical history patient denies any medical problems other than high cholesterol and a history of diverticulitis Concerning past surgical history his surgeries are listed above Concerning social history his smoking history as listed above Concerning family history he notes that he has a sister and mother who suffer from coronary artery disease Allergies Allergy/AdvReac Type Severity Reaction Status Date / Time No Known Allergies Allergy Unverified 09/12/23 13:31 Home Medications Medication Instructions Recorded Confirmed Type trazodone 50 mg tablet 100 mg PO HS 12/18/23 05/23/24 History ezetimibe 10 mg tablet 10 mg PO QPM 05/23/24 05/23/24 History Past Med/Surg History Problem List (Updated 05/23/24 @ 22:49 by Krystal Romano DO) Cholecystitis (Acute) Nausea (Acute) Abdominal pain (Acute) Mild sleep apnea Sleep disturbances Insomnia Snoring Diverticulitis of intestine with abscess (Acute) Tobacco use Dyslipidemia Pericolonic abscess Medical History Diverticulitis Social History Smoking Status: Current every day smoker Tobacco Type: Cigarettes Cigarettes Per Day: 20; Do You Dip or Chew Tobacco: No; Hx Alcohol Use: No Hx Substance Use: No Preferred Language: Azeri Communication Ability: Effective Hand Gluer And Slicer Required: No Beliefs That Will Affect Care: None Current Living Situation: Spouse Feels Safe at Home: Yes Safety Concerns: Feels Safe At This Time Assistive Devices: None Review of Systems Review of Systems: All systems reviewed & are unremarkable except as noted in HPI & below Physical Exam Constitutional: WD/WN, vitals as above Eyes: + anicteric sclerae ENMT: Ears: no hearing impairment and no external ear abnormality Sublingual jaundice is absent Neck: trachea midline Respiratory: normal respiratory effort; no respiratory distress and no labored breathing Cardiovascular: Rate/Rhythm: regular rate and regular rhythm Gastrointestinal (Abdomen): Abdomen is soft and nondistended. It is nonrigid. Patient did have pain with palpation in the right upper quadrant. Patient had evidence of a previous ileostomy which is now well-healed. He also has a midline incision which is well-healed. Musculoskeletal: No calf tenderness Skin: no jaundice Neurologic: moves all extremities Psychiatric: A+Ox3, euthymic affect Results & Data Results & Data Vital Signs (Past 12 Hours) Vital Signs Temp Pulse Pulse Resp BP BP Pulse Ox 05/23/24 17:45 63 20 160/84 H 92 05/23/24 16:02 36.3 C L 70 20 161/78 H 94 O2 Del Method 05/23/24 17:45 Room Air 05/23/24 16:02 Room Air PG Care Time/CCT Total # of Minutes Spent Total Time Spent with Patient: Total time spent is greater than 50% in coordination of care (as documented) at patient's floor/unit and/or counseling patient: Coding Level of Care Code 86016 INT INP/OBS CARE 3/75MIN Diagnoses Cholecystitis K81.9
[2024-05-23] MEDS: PIPERACILLIN/TAZOBACTAM 4.5 GM/100 ML BAG IV ONE (20:35)
[2024-05-23] MEDS: SODIUM CHLORIDE 0.9% 1,000 ML IV SCH (23:54)
[2024-05-24] MEDS: PIPERACILLIN/TAZOBACTAM 4.5 GM/100 ML BAG IV SCH (01:27)
[2024-05-24 06:26] LABS: Basophils # (auto) 0.07 K/uL (0.00-0.20); Basophils % (auto) 0.9 %; Eosinophils # (auto) 0.27 K/uL (0.00-0.50); Eosinophils % (auto) 3.5 %; Hematocrit (blood only) 46.9 % (42.0-52.0); Hemoglobin 15.2 g/dl (14.0-18.0); Immature Granulocytes # (auto) 0.02 K/uL (0.01-0.20); Immature Granulocytes % (auto) 0.3 %; Lymphocytes # (auto) 2.58 K/uL (1.20-3.40); Lymphocytes % (auto) 33.1 %; Mean Corpuscular Hemoglobin 30.5 pg (25.0-34.0); Mean Corpuscular Hgb Conc 32.4 g/dL (32.0-36.0); Mean Corpuscular Volume 94.2 fL (80.0-100.0); Mean Platelet Volume 9.4 fL (9.4-12.4); Monocytes # (auto) 0.53 K/uL (0.11-0.59); Monocytes % (auto) 6.8 %; Neutrophils # (auto) 4.33 K/uL (1.40-6.50); Neutrophils % (auto) 55.4 %; Platelet Count 183 K/uL (130-400); RDW Coefficient of Variation 13.2 % (11.5-14.5); RDW Standard Deviation 45.6 fL (36.4-46.3); Red Blood Count 4.98 M/uL (4.70-6.10)
[2024-05-24] MEDS ORDERED: fentaNYL citrate PF 100 MCG/2 ML VIAL ONE ×2 (07:10→08:28)
[2024-05-24] MEDS ORDERED: LIDOCAINE 2% 2 ML VIAL/AMP(20MG/ML) INFIL ONE (07:10)
[2024-05-24] MEDS ORDERED: ONDANSETRON INJ 2 MG/ML 2 ML VIAL ONE (07:10)
[2024-05-24] MEDS ORDERED: DEXAMETHASONE SOD INJ 4 MG/ML VIAL ONE (07:10)
[2024-05-24] MEDS ORDERED: MIDAZOLAM HCL 1 MG/ML 2ML VIAL ONE (07:10)
[2024-05-24] MEDS ORDERED: PROPOFOL IV EMULSION 10 MG/ML 20 ML VIAL IV ONE (07:10)
[2024-05-24 07:13] LABS: Albumin Globulin Ratio 1.5 (0.9-2); Albumin Level 3.8 gm/dl (3.4-5.0); BUN Creatinine Ratio 13.9 (10-20); Bilirubin,Total 0.7 mg/dl (0.2-1.0); Calcium 8.9 mg/dl (8.6-10.3); Creatinine Clr Calc Pharmacy 98.2 ml/min; Globulin 2.6 gm/dl (2.5-4.0); Potassium 4.3 mmol/L (3.5-5.1); Total Protein 6.4 gm/dl (6.0-8.3)
--- NOTE | 2024-05-24 07:22 | History & Physical Bridge Note ---
Date of Service May 24, 2024 History & Physical Bridge Note I have examined the patient, reviewed the History & Physical and in the interval since the performance of the History & Physical I have noted the following changes of clinical significance: no changes noted discussed options/risks ( bleeding/infection/injury to an organ/bile duct injury or leak/dvt/pe/mi/cva etc..) questions answered. will proceed with rolanda rodriguez today
--- NOTE | 2024-05-24 07:33 | Electrocardiogram Report ---
Test Reason : Blood Pressure : */* mmHG Vent. Rate : 60 BPM Atrial Rate : 60 BPM P-R Int : 148 ms QRS Dur : 96 ms QT Int : 414 ms P-R-T Axes : 59 51 71 degrees QTcB Int : 414 ms Normal sinus rhythm When compared with ECG of 18-Dec-2023 06:44, QRS axis Shifted left Confirmed by Avery Reynoso ([id number]) on 05/24/2024 7:33:26 AM Referred By: REFERRED SELF Confirmed By: Avrey Reynoso
--- NOTE | 2024-05-24 07:40 | Anesthesiology Consultation ---
Date of Service May 24, 2024 Assessment & Plan Chart Review Chart Review: Acceptable Risk for Surgery and Patient NOT seen in Pre Admission Testing Consults Requested none History Surgery Operation Date: 05/24/24 07:30 Proposed Procedures p Laparoscopic Cholecystectomy - Wojciech Livingston, Height/Weight Height: 5 ft 9 in Weight: 79 kg Allergies Allergy/AdvReac Type Severity Reaction Status Date / Time No Known Allergies Allergy Unverified 09/12/23 13:31 Medications Home Medications Medication Instructions Recorded Confirmed Last Taken trazodone 50 mg tablet 100 mg PO HS 12/18/23 05/23/24 12/17/23 ezetimibe 10 mg tablet 10 mg PO QPM 05/23/24 05/23/24 Unknown oxycodone 5 mg tablet 5 - 10 mg (1 - 2 x 5 mg) PO 05/24/24 Unknown .[id number] PRN pain #15 tabs Active Medications Generic Name Dose Route Start Last Admin Trade Name Freq PRN Reason Stop Dose Admin Sodium Chloride 1,000 mls @ 100 mls/hr 05/23/24 23:55 05/23/24 23:54 Nss IV 05/24/24 23:54 100 mls/hr .Q10H RAEANN Administration Piperacillin Sod/Tazobactam Sod 4.5 gm in 100 mls @ 25 mls/hr 05/24/24 02:00 05/24/24 05:29 Zosyn IV 06/03/24 01:59 Infused Q8H RAEANN Infusion Protocol NPO Date Last Intake of Fluids: 05/23/24 Time Last Intake of Fluids: 22:00 Date Last Intake of Solids: 05/23/24 Time Last Intake of Solids: 22:00 Past Medical History Medical History Diverticulitis Social History Smoking Status: Current every day smoker tobacco type: cigarettes Smoking cigarettes per day: 20 Do You Dip or Chew Tobacco: No Hx Alcohol Use: No Hx Substance Use: No Physical Exam Vital Signs Last Vital Signs Temp 36.4 C L 05/24/24 04:07 Pulse 69 05/24/24 04:07 Resp 14 05/24/24 05:32 BP 122/71 05/24/24 04:07 Pulse Ox 92 05/24/24 05:32 O2 Del Method Room Air 05/24/24 05:32 O2 Flow Rate 2 05/23/24 22:23 Constitutional WD/WN, vitals as above Eyes + anicteric sclerae ENMT Ears: no hearing impairment and no external ear abnormality Neck trachea midline Respiratory normal respiratory effort; no respiratory distress and no labored breathing Cardiovascular Rate/Rhythm: regular rate and regular rhythm Skin no jaundice Neurologic moves all extremities Psychiatric A+Ox3, euthymic affect Testing Laboratory Results 05/24/24 05:58 05/24/24 05:58 PT 10.3 Seconds (9.0-12.0) 05/23/24 16:11 INR 0.9 (0.9-1.1) 05/23/24 16:11
[2024-05-24] MEDS ORDERED: PHENYLEPHRINE HCL 10 MG/ML VIAL ONE (07:44)
[2024-05-24] MEDS: ceFAZolin 2000MG 2,000 MG/15 ML SYR IV ONE (07:57)
[2024-05-24] MEDS ORDERED: ONDANSETRON INJ 2 MG/ML 2 ML VIAL IV PRN (08:06)
[2024-05-24] MEDS ORDERED: ePHEDrine sulfate 50 MG/ML AMP IV PRN (08:06)
[2024-05-24] MEDS ORDERED: ATROPINE SULFATE 0.1 MG/ML 10ML SYR IV PRN (08:06)
[2024-05-24] MEDS ORDERED: fentaNYL citrate PF 100 MCG/2 ML VIAL IV PRN (08:06)
[2024-05-24] MEDS ORDERED: SUGAMMADEX SODIUM 200 MG/2 ML VIAL IV ONE (08:28)
[2024-05-24] MEDS: BUPIVACAINE/EPINEPHRINE 0.5% MPF 1:200,000 30 ML VIAL ONE (08:34)
--- NOTE | 2024-05-24 08:46 | Operative Report ---
PG Post Operative Report Pre & Post Diagnosis Operation Date: 05/24/24 07:30 Pre-Op Diagnosis: Cholecystitis Post-Op Diagnosis: Cholecystitis I identified the patient and participated in the time-out.: Yes Procedure Operation Date: 05/24/24 07:30 Actual Procedures p Laparoscopic Cholecystectomy(Not Applicable) - Wojciech Livingston DO Surgeon Wojciech Livingston DO Business Insurance Agent lisy smith Estimated Blood Loss 25 Findings Consistent with Post-Op Diagnosis Specimens gallbladder Description of Procedure After informed consent was obtained the patient was taken to the operating room and placed in the supine position. After successful intubation the abdomen was sterilely prepped and draped in usual fashion. I began with a left upper quadrant incision with an 11 blade scalpel and carried down through the soft tissue using electrocautery. The anterior rectus fascia was opened using electrocautery and 2 #0 Vicryl stay sutures were placed. The peritoneum was elevated with hemostats and incised under direct vision using Metzenbaum scissors. A finger sweep was performed and a 12 mm Dubon trocar was placed. The abdomen was insufflated to 18 mmHg. The laparoscope was inserted and the abdomen was examined in 360. There was a large amount of adhesions encompassing the abdomen. I was able to place 2 right upper quadrant 5 mm ports under direct vision. I was also able to find a spot to place a 12 mm incision in the mid abdomen just to the right of midline. The adhesions were dense and matted throughout the abdomen and therefore I did not try and take any of these down. The patient was placed in a reverse Trendelenburg position and slightly airplaned to the left. The gallbladder was grasped and elevated superiorly and laterally. It was acutely inflamed. A [place] dissector was used to take down adhesions around the neck of the gallbladder. The cystic duct was identified and skeletonized. It was clipped twice proximally and once distally and transected using a laparoscopic scissor. In similar fashion the cystic artery was identified and skeletonized clipped and divided. There was a small lateral branch that was clipped and divided as well. The gallbladder was removed from the gallbladder fossa with electrocautery. It was placed into an Endo Catch bag. Thorough irrigation was performed. At the end of the procedure there was adequate hemostasis and no evidence of any bile leaks. A final look around the abdomen showed no other abnormalities. The gallbladder and trochars were all re moved and the abdomen was desufflated. The fascia of the camera port was closed using 0 Vicryl in a [id number] fashion. All the wounds were irrigated and closed using 4-0 Monocryl. Marcaine was injected around them for postoperative analgesia and skin glue used as a dressing. The patient was awaken extubated and transferred to recovery in stable condition. My CONSTRUCTION [employer]PENTER dyer assistant was present throughout the entire case... helped with prepping the patient. With exposure for trocar placement, as well as retracted the gallbladder throughout the case and also assisted with wound closure and d ressing placement. I attest to the content of the Intraoperative Record and any orders documented therein. Any exceptions are noted below.
--- NOTE | 2024-05-24 09:21 | Anesthesiology Progress Note ---
Date of Service May 24, 2024 Anesthesia Post Procedure Vital Signs Vital Signs: Temp Pulse Pulse Pulse Resp BP BP 05/24/24 09:20 67 18 125/70 05/24/24 09:10 74 18 125/69 05/24/24 09:00 68 12 138/71 05/24/24 08:54 36 C L 66 16 136/76 05/24/24 05:32 14 05/24/24 04:07 36.4 C L 69 16 122/71 05/23/24 22:23 05/23/24 22:23 36.5 C 72 16 127/72 05/23/24 20:30 60 18 145/80 H 05/23/24 17:45 63 20 160/84 H 05/23/24 16:02 36.3 C L 70 20 161/78 H Pulse Ox O2 Del Method O2 Flow Rate 05/24/24 09:20 95 Room Air 05/24/24 09:10 100 Oxymask 6 05/24/24 09:00 98 Oxymask 8 05/24/24 08:54 99 Oxymask 8 05/24/24 05:32 92 Room Air 05/24/24 04:07 90 Room Air 05/23/24 22:23 Nasal Cannula 2 05/23/24 22:23 93 Nasal Cannula 2 05/23/24 20:30 95 Room Air 05/23/24 17:45 92 Room Air 05/23/24 16:02 94 Room Air Pain Intensity Abdomen: Pain Intensity: 1 Transfer of Care Handoff Completed per policy Notes Mental Status: alert / awake / arousable Patient Amnestic to Procedure: Yes Nausea / Vomiting: adequately controlled Pain: adequately controlled Airway Patency, RR, SpO2: stable & adequate BP & HR: stable & adequate Hydration State: stable & adequate Anesthetic Complications: no major complications apparent and Pt Satisfied with anesthetic care
[2024-05-24] MEDS ORDERED: oxyCODONE HCL IR 5 MG TAB (IMMEDIATE RELEASE) PO PRN ×2 (09:50)
[2024-05-24] MEDS ORDERED: ACETAMINOPHEN 325 MG TAB PO PRN (09:50)
[2024-05-24 12:03] VITALS: O2SAT 90
[2024-05-24 12:44] VITALS: BP 131/75; PULSE 71; RESP 15; TEMP 97.7
--- NOTE | 2024-05-26 09:46 | Discharge Summary ---
Date of Service May 24, 2024 Admission HPI Per Admitting Provider This is a 63-year-old male who presented to the emergency department [facility] secondary abdominal pain. Patient says over the past 5 days he has been having right upper quadrant abdominal pain. Patient is unsure if it was related to meals as he has not been paying much attention to that aspect of his life. He has had associated nausea without vomiting. He denies any fevers, shakes, or chills. He does not report any other mitigating factors to his pain. He notes that he has been having the pain and it on and off fashion and today became markedly worse prompting his visit to the emergency department. Patient does note that he has a history of prior abdominal surgeryhe has had a history of diverticulitis with perforation and intra- abdominal abscess requiring a sigmoid colon resection end ileostomy at [facility] in August 2022. He notes that his ileostomy was reversed in November 2022 and he has not had any additional abdominal surgeries. Patient does report that he is a lifetime smoker smoking 1 pack cigarettes per day for approximately 50 years. He denies any known history of coronary artery disease. He notes he leads an active lifestyle and can easily walk a flat surface at a mile without chest pain or shortness of breath. He denies any chest pain or shortness of breath with his activities of daily living. Since arrival to the emergency department this man has had labs and imaging which I independent reviewed. A CT scan abdomen pelvis showed the patient had gallstones with a gallstone in the cystic duct and findings concerning for acute cholecystitis. There was borderline gallbladder wall thickening and trace pericholecystic fluid. There is no choledocholithiasis noted on this study. The gallbladder ultrasound confirmed cholelithiasis and findings concerning for cholecystitishe was noted to have wall thickening measuring 3.3 mm and a nonmobile stone in the gallbladder neck. The gallbladder was distended on this study. Labs included CBC with white blood cell count, hemoglobin, hematocrit, platelet count were normal. Coagulation studies were noted to be normal. Chemistry profile showed sodium and potassium as well as BUN and creatinine were normal. There is no elevation of patient's LFTs or lipase. An EKG showed sinus rhythm without any changes indicative of acute ischemia. At the time of my interview he was resting comfortably in bed and he was in no distress. Concerning past medical history patient denies any medical problems other than high cholesterol and a history of diverticulitis Concerning past surgical history his surgeries are listed above Concerning social history his smoking history as listed above Concerning family history he notes that he has a sister and mother who suffer from coronary artery disease Principal Diagnosis acute cholecystitis Discharge Exam Respiratory normal respiratory effort and able to speak in complete sentences; no respiratory distress Gastrointestinal (Abdomen) Inspection/Auscultation: abdomen not distended Percussion/Palpation: abdomen soft; abdomen nontender Musculoskeletal no cyanosis or clubbing, extremities motor strength 11/30 Discharge Data Allergies Allergy/AdvReac Type Severity Reaction Status Date / Time No Known Allergies Allergy Unverified 09/12/23 13:31 Consultations 05/23/24 19:46 ED Decision to Admit Stat Procedures Performed Operation Date: 05/24/24 07:30 Actual Procedures p Laparoscopic Cholecystectomy(Not Applicable) - Wojciech Livingston, Ordered Studies 05/23/24 17:02 CT abd pelvis IV con only Stat 05/23/24 18:49 US gallbladder Stat Hospital Course (1) Cholecystitis: This is a 63 yo male who presented to the [facility] ED on 05/23/24 with abdominal pain. Workup in the ED showed a CT a/p and RUQ u/s concerning for acute cholecystitis . The patient was tender to palpation in the RUQ. Patient made NPO with IVF and booked for the OR. On 05/24/24 the patient went to the OR with Dr Livingston for a laparoscopic Cholecystectomy. The patient tolerated the procedure well, see operative report for full details. Post operatively the patient's diet was advanced, pain managed on prn meds, and incisions clean/dry/intact. Post procedure the patient was deemed stable for discharge to home, given follow up recommendations and return precautions, all questions answered. Total Time Total Time Spent Total Time Spent (In Minutes): 10 Discharge Plan Discharge Items Patient Disposition: Home - Self-Care Reason For Visit: EDITH Discharge Diagnosis: Laparoscopic cholecystectomy Activity: Per Instructions section Lifting: No more than 10 pounds Bathing Comment: You can shower 05/25. No soaking in pools or baths for 2 weeks Exercise/Sports: Wait until after follow-up appointment Driving/Machine Use: no driving if taking narcotics Non-emergency contact: Surgeon Call non-emergency contact if: you have any medication questions, your symptoms worsen, your temperature is above 101.5, your wound has increased redness, your wound has increased drainage and your wound pain has increased Follow-up/Referrals: Wojciech Livingston DO [Surgeon] - (call office for follow up in 2 weeks ) Andres Black MD [Primary Care Provider] - Diet: Regular Addtl Attending Provider Instructions: SPECIAL CARE INSTRUCTIONS: You have surgical glue called dermabond on your surgical site incisions. You may shower with this on. This will tend to come off within a couple of weeks. Do not pick at it. * You may shower 05/25 . NO soaking in pools or baths for 2 weeks * No lifting greater than 10lbs. No exercise until cleared by surgeon. Light walking is accepted. * No driving while taking narcotic pain medication * No drinking alcohol while taking narcotic pain medication * May use Ibuprofen/Tylenol over the counter for pain as tolerated. Do not exceed 3grams of Tylenol per 24 hours * Expect some swelling and bruising. * Diet regular Call your doctor if: * Temperature above 101 degrees, nausea/vomiting, fever/chills * Pain not relieved by pain medicine ordered * There is increased drainage or redness from any incision * You have any unanswered questions or concerns [phone]. FOLLOW UP VISIT: If not already scheduled, please call the office for a follow-up visit. Office Pending Studies at Discharge: Yes Studies:: surgical pathology Stand-Alone Forms: [facility] Cess[facility] Medications and DC Order Prescriptions: New oxycodone 5 mg tablet 5 - 10 mg PO .[id number] MDD no more than 6 tabs in 24hours PRN (Reason: pain) Qty: 15 0RF Continued trazodone 50 mg tablet 100 mg PO HS ezetimibe 10 mg tablet 10 mg PO QPM Discharge Orders: Discharge Order (Routine); Ordered 05/24/24 Ordered By: Leslie Price/Other Patient Handouts: Having Laparoscopic Cholecystectomy, Cholecystectomy Dc Admission Data Admit Date/Time: 05/23/24 20:11 Attending Provider: Wojciech Livingston Admit Provider: Wojciech Livingston Primary Care Provider: Andres Black Other Interventions: Discharge Summary Assessment (RN) Last Done: 05/24/24 13:36 Coding Level of Care Code 82187 IN/OBS DISCH 30 MIN/LESS Diagnoses Cholecystitis K81.9
== END 2024-05-24 15:05 | disposition home or self-care (01) | DRG 410 ==
LOC: ED 15:57 → INTOOBSV 20:11 → 3N 20:11